=== PATIENT | female | born 1930 | race Caucasian/White ===

== ENCOUNTER 2017-08-05 10:45 | Outpatient (RCR) | payer MEDICARE ==
--- NOTE | 2017-07-29 17:45 | PT INITIAL EVALUATION ---
MEDICAL DIAGNOSIS: Edema, Hypoxia TREATMENT DIAGNOSIS: Cardiac edema, Venous Insufficiency, Phlebolymphedema DATE OF ONSET: 07/29/17 SUBJECTIVE: Maggie is a 87 year-old female presenting to physical therapy following a recent increase in B LE edema. Pt's son is present throughout evaluation as pt has dementia and is currently residing in [facility]. Pt and son report that edema started a while ago and that previously she was receiving treatment for it in [place], [place]. Since moving her the edema has recently increased because pt is non-compliant with use of compression garments secondary to cognitive difficulties. Swelling occurred initially secondary to cardiac edema. Pt is currently taking diuretics regularly to manage. Pt reports that currently swelling is so bad she can't even wear normal shoes and can barely fit on slippers. Pt denies any pain. REHAB PROBLEM LIST: Decreased ROM Decreased Function Decreased ADL's Decreased Mobility Decreased Gait PREVIOUS MEDICAL HISTORY: See EMR OCCUPATION: Retired OBJECTIVE: Pt presents with redness along gaiter distribution B with peau d' orange texture across the mann B. ROM: Ankle mobility with mild restrictions secondary to stiffness, but without pain. Palpation: Stemmer's sign (+) on R 1st digit, and L 1st and 2nd digits. (-) B on dorsum. 2+ pitting is present on calf B, with 3+ pitting on dorsum of foot. Special Tests: Circumferential measures (L, R) in cm: 1st digit: 8.2, 8.4, 2nd digit: 5.7, 5.5, dorsum: 24.2, 24, figure 8: 52, 51.5, above malleoli: 23.5, 23 , mid calf: 38, 37.7, below knee: 38.8, 38.5, above knee: 41.5, 40. Other Objective Findings: Pt is on 5 L of Oxygen. O2 saturation: 85%, HR 72bpm, BP: 104/58 pt's son reports that low BP is common for pt and being managed. ASSESSMENT: Pt shows signs and symptoms consistent with cardiac edema with secondary venous insufficiency and phlebolymphedema. Lymphatic therapy is indicated for this pt for decreasing circumferential volume of the limb addressing the above listed impairments to return pt to prior level of function. Precautions to treatment include dementia resulting in low compliance with compression garments as well as gradual progression of treatment secondary to CHF condition. Short Term Goals In 3 weeks pt will be able to wear normal shoes with ADL's secondary to decreased edema in B feet. In 6 weeks pt will have a negative Stemmer's sign on B digits and dorsum of foot indicating decreased protein content and improved tissue mobility. In 6 weeks pt will be compliant with compression garments and exercise program to maintain circumferential reductions. Patient's Goals Decrease edema so that she can wear normal shoes. PLAN: Patient to be seen for Manual Therapy/STM/MET Range of Motion Stretching Neuromuscular Re-ed Closed Chain Program Gait Trg/Balance Trg Home Exercise Program [facility]./Manual Traction Therapeutic Activities 5x/Week for 6 Weeks If you have any questions, comments, or concerns about this report or plan, please contact me at . Thank you, Jaimie Sims, PT, DPT, CLT MTDD
[2017-08-05] MEDS ORDERED: ACET-1966 PO (16:12)
[2017-08-05] MEDS ORDERED: FERR-53 PO (16:20)
[2017-08-05] MEDS ORDERED: IPRA4AER IH (16:20)
[2017-08-05] MEDS ORDERED: MAG-65 PO (16:20)
[2017-08-05] MEDS ORDERED: MOM PO (16:20)
[2017-08-05] MEDS ORDERED: FURO20TA19 PO (16:20)
[2017-08-05] MEDS ORDERED: LOPE2CAP15 PO (16:20)
[2017-08-05] MEDS ORDERED: APIX2.5T PO (16:20)
[2017-08-05] MEDS ORDERED: DIGO125T73 PO (16:20)
[2017-08-05] MEDS ORDERED: METO-233 PO (16:20)
[2017-08-05] MEDS ORDERED: FAMO1TAB59 PO (16:20)
[2017-08-05] MEDS ORDERED: CEPH500T7 PO (17:52)
== END 2017-08-05 18:00 | disposition home or self-care (01) ==
LOC: PT 10:45
PROVIDERS: ATTEND Family Medicine
DX: R09.02 Hypoxemia (principal); I89.0 Lymphedema, not elsewhere classified; I87.2 Venous insufficiency (chronic) (peripheral); Z99.81 Dependence on supplemental oxygen; F03.90 Unspecified dementia, unspecified severity, without behavioral disturbance, psychotic disturbance, mood disturbance, and anxiety
CPT/HCPCS: 97162

== ENCOUNTER 2017-08-05 15:37 | Emergency (ER) | payer MEDICARE ==
--- NOTE | 2017-08-05 15:45 | ER Report ---
History and Physical Time Seen By MD: 15:36 HPI/ROS CHIEF COMPLAINT: Fall with unequal pupils HISTORY OF PRESENT ILLNESS: 87-year-old female patient presents to emergency room with complaint of a fall. Patient is a resident of [facility]. Patient has no recollection of fall, she denies having any neck pain. She denies having any head pain. She states that she is here at the hospital, she is unsure of recent. She states that she took a medicine for exercise which had too much exercise in it. Patient denies having any nausea, vomiting. Patient does have a history of dementia. Patient unable to state if she is taken any medications. She does take a look was and has been having recent nosebleeds. REVIEW OF SYSTEMS: Respiratory: No cough, no dyspnea. Cardiovascular: No chest pain, no palpitations. Gastrointestinal: No vomiting, no abdominal pain. Musculoskeletal: No back pain. Allergies: Coded Allergies: No Known Drug Allergies (Unverified , 08/05/17) Home Meds Active Scripts Cephalexin 500 Mg Tab (KEFLEX 500 MG TAB) 500 Mg Tablet, 500 MG PO Q6H, #26 TAB Prov:JEY ANGEL OFFICE CLIN ASST 08/05/17 Reported Medications Metoprolol Succinate (TOPROL XL) 50 Mg Tab.er.24h, 1 TAB PO QDAY, TAB 08/05/17 Mag Hydrox/Aluminum Hyd/Simeth (Maalox Advanced Suspension) 200 Mg-200 Mg-20 Mg/ 5 Ml Oral.susp, 15 08/05/17 Magnesium Hydroxide (MILK OF MAGNESIA) 400 Mg/5 Ml Oral.susp, 400 MG PO, BOTTLE 08/05/17 Furosemide (LASIX) 20 Mg Tablet, 2 TAB PO DAILY, TAB 08/05/17 Loperamide HCl (Imodium A-D) 2 Mg Capsule 08/05/17 Ferrous Sulfate (FERROUS SULFATE) 325 Mg Tablet, 325 MG PO BID 08/05/17 Apixaban (ELIQUIS) 2.5 Mg Tablet, 2.5 MG PO BID 08/05/17 Digoxin (DIGOXIN) 125 Mcg Tablet, 125 MCG PO QDAY 08/05/17 Ipratropium/Albuterol Sulfate (COMBIVENT RESPIMAT INHAL SPRAY) 4 Gm Aer.w.adap, 1 EACH IH QID 08/05/17 Famotidine/Ca Carb/Mag Hydrox (TUMS DUAL ACTION TABLET CHEW) 1 Each Tab.chew, 1 EACH PO, TAB.CHEW 08/05/17 Acetaminophen (TYLENOL) 325 Mg Tablet, 325 MG PO q4h prn, TAB 08/05/17 Past Medical/Surgical History Patient has a past medical history of dementia, CHF, oxygen, cataracts. Patient has surgical history of cataract surgery. Reviewed Nurses Notes: Yes Constitutional Vital Sign - Last 24 Hours 08/05/17 08/05/17 08/05/17 08/05/17 15:41 15:44 15:45 16:06 Temp 97.9 Pulse 81 Resp 18 B/P (MAP) 124/58 124/58 (80) 122/67 (85) Pulse Ox 89 O2 Delivery Nasal Cannula O2 Flow Rate 5.0 08/05/17 08/05/17 08/05/17 08/05/17 16:07 16:30 16:35 17:05 Pulse 80 ? B/P (MAP) 114/52 (72) Pulse Ox 91 08/05/17 08/05/17 08/05/17 17:24 17:30 17:35 Pulse 74 B/P (MAP) 112/82 (92) 114/92 (99) Pulse Ox 83 Physical Exam General Appearance: The patient is alert, has no immediate need for airway protection and no current signs of toxicity. Eyes: Pupils unequal with the left pupil being more constricted than the right and round no injection. Respiratory: Chest is non tender, lungs are clear to auscultation. Cardiac: regular rate and rhythm Gastrointestinal: Abdomen is soft and non tender, no masses, bowel sounds normal. Musculoskeletal: Neck: Neck is supple and non tender. Extremities have full range of motion and are non tender. Skin: No rashes or lesions. DIFFERENTIAL DIAGNOSIS: After history and physical exam differential diagnosis was considered for head injury including but not limited to concussion, skull fracture, intraparenchymal contusion, subarachnoid, subdural and epidural hematoma. Medical Decision Making Data Points Result Diagram: 08/05/17 1550 08/05/17 1550 Laboratory Hematology Test 08/05/17 15:50 08/05/17 16:05 Red Blood Count 3.60 M/uL (4.17-5.56) Mean Corpuscular Volume 107.7 fL (80.0-96.0) Mean Corpuscular Hemoglobin 35.4 pg (26.0-33.0) Mean Corpuscular Hemoglobin Concent 32.9 g/dL (32.0-36.0) Red Cell Distribution Width 17.3 % (11.5-14.5) Mean Platelet Volume 7.5 fL (7.2-11.1) Neutrophils (%) (Auto) 77.6 % (39.4-72.5) Lymphocytes (%) (Auto) 11.9 % (17.6-49.6) Monocytes (%) (Auto) 9.2 % (4.1-12.4) Eosinophils (%) (Auto) 0.7 % (0.4-6.7) Basophils (%) (Auto) 0.6 % (0.3-1.4) Nucleated RBC Relative Count (auto) 0.4 /100WBC Neutrophils # (Auto) 5.0 K/uL (2.0-7.4) Lymphocytes # (Auto) 0.8 K/uL (1.3-3.6) Monocytes # (Auto) 0.6 K/uL (0.3-1.0) Eosinophils # (Auto) 0.0 K/uL (0.0-0.5) Basophils # (Auto) 0.0 K/uL (0.0-0.1) Nucleated RBC Absolute Count (auto) 0.03 K/uL Prothrombin Time 15.0 seconds (12.0-14.4) Prothromb Time International Ratio 1.17 Activated Partial Thromboplast Time 31 seconds (23-35) Sodium Level 146 mmol/L (137-145) Potassium Level 3.8 mmol/L (3.5-5.0) Chloride Level 103 mmol/L (98-107) Carbon Dioxide Level 33 mmol/L (22-31) Blood Urea Nitrogen 20 mg/dl (7-18) Creatinine 0.90 mg/dl (0.52-1.04) Glomerular Filtration Rate Calc 59.1 Random Glucose 101 mg/dl (75-110) Calcium Level 8.8 mg/dl (8.4-10.2) Total Bilirubin 0.7 mg/dl (0.2-1.3) Aspartate Amino Transf (AST/SGOT) 34 U/L (0-35) Alanine Aminotransferase (ALT/SGPT) 25 U/L (0-56) Alkaline Phosphatase 88 U/L (0-126) Troponin I < 0.012 ng/ml Total Protein 6.7 gm/dl (6.3-8.2) Albumin 3.3 g/dl (3.5-5.0) Urine Color Yellow Urine Clarity Clear Urine pH 5.0 pH (4.8-9.5) Urine Specific [place] 1.015 Urine Protein Negative mg/dL (NEGATIVE) Urine Glucose (UA) Negative mg/dL (NEGATIVE) Urine Ketones Negative mg/dL (NEGATIVE) Urine Blood Negative (NEGATIVE) Urine Nitrite Positive (NEGATIVE) Urine Bilirubin Negative (NEGATIVE) Urine Urobilinogen 2.0 mg/dL (0.2-1.9) Urine Leukocyte Esterase Negative (NEGATIVE) Urine RBC 2 /HPF (0-2/HPF) Urine WBC 2 /HPF (0-5/HPF) Urine Squamous Epithelial Cells Few /LPF (NONE-FEW) Urine Bacteria Few /HPF (NONE-FEW) Urine Mucus None /HPF (NONE-FEW) Chemistry Test 08/05/17 15:50 08/05/17 16:05 White Blood Count 6.4 k/uL (4.5-11.0) Red Blood Count 3.60 M/uL (4.17-5.56) Hemoglobin 12.8 g/dL (12.0-16.0) Hematocrit 38.8 % (34.0-47.0) Mean Corpuscular Volume 107.7 fL (80.0-96.0) Mean Corpuscular Hemoglobin 35.4 pg (26.0-33.0) Mean Corpuscular Hemoglobin Concent 32.9 g/dL (32.0-36.0) Red Cell Distribution Width 17.3 % (11.5-14.5) Platelet Count 164 K/uL (150-450) Mean Platelet Volume 7.5 fL (7.2-11.1) Neutrophils (%) (Auto) 77.6 % (39.4-72.5) Lymphocytes (%) (Auto) 11.9 % (17.6-49.6) Monocytes (%) (Auto) 9.2 % (4.1-12.4) Eosinophils (%) (Auto) 0.7 % (0.4-6.7) Basophils (%) (Auto) 0.6 % (0.3-1.4) Nucleated RBC Relative Count (auto) 0.4 /100WBC Neutrophils # (Auto) 5.0 K/uL (2.0-7.4) Lymphocytes # (Auto) 0.8 K/uL (1.3-3.6) Monocytes # (Auto) 0.6 K/uL (0.3-1.0) Eosinophils # (Auto) 0.0 K/uL (0.0-0.5) Basophils # (Auto) 0.0 K/uL (0.0-0.1) Nucleated RBC Absolute Count (auto) 0.03 K/uL Prothrombin Time 15.0 seconds (12.0-14.4) Prothromb Time International Ratio 1.17 Activated Partial Thromboplast Time 31 seconds (23-35) Glomerular Filtration Rate Calc 59.1 Calcium Level 8.8 mg/dl (8.4-10.2) Total Bilirubin 0.7 mg/dl (0.2-1.3) Aspartate Amino Transf (AST/SGOT) 34 U/L (0-35) Alanine Aminotransferase (ALT/SGPT) 25 U/L (0-56) Alkaline Phosphatase 88 U/L (0-126) Troponin I < 0.012 ng/ml Total Protein 6.7 gm/dl (6.3-8.2) Albumin 3.3 g/dl (3.5-5.0) Urine Color Yellow Urine Clarity Clear Urine pH 5.0 pH (4.8-9.5) Urine Specific [place] 1.015 Urine Protein Negative mg/dL (NEGATIVE) Urine Glucose (UA) Negative mg/dL (NEGATIVE) Urine Ketones Negative mg/dL (NEGATIVE) Urine Blood Negative (NEGATIVE) Urine Nitrite Positive (NEGATIVE) Urine Bilirubin Negative (NEGATIVE) Urine Urobilinogen 2.0 mg/dL (0.2-1.9) Urine Leukocyte Esterase Negative (NEGATIVE) Urine RBC 2 /HPF (0-2/HPF) Urine WBC 2 /HPF (0-5/HPF) Urine Squamous Epithelial Cells Few /LPF (NONE-FEW) Urine Bacteria Few /HPF (NONE-FEW) Urine Mucus None /HPF (NONE-FEW) Coagulation Test 08/05/17 15:50 Prothrombin Time 15.0 seconds Prothromb Time International Ratio 1.17 Activated Partial Thromboplast Time 31 seconds Urinalysis Test 08/05/17 16:05 Urine Color Yellow Urine Clarity Clear Urine pH 5.0 pH (4.8-9.5) Urine Specific [place] 1.015 Urine Protein Negative mg/dL (NEGATIVE) Urine Glucose (UA) Negative mg/dL (NEGATIVE) Urine Ketones Negative mg/dL (NEGATIVE) Urine Blood Negative (NEGATIVE) Urine Nitrite Positive (NEGATIVE) Urine Bilirubin Negative (NEGATIVE) Urine Urobilinogen 2.0 mg/dL (0.2-1.9) Urine Leukocyte Esterase Negative (NEGATIVE) Urine RBC 2 /HPF (0-2/HPF) Urine WBC 2 /HPF (0-5/HPF) Urine Squamous Epithelial Cells Few /LPF (NONE-FEW) Urine Bacteria Few /HPF (NONE-FEW) Urine Mucus None /HPF (NONE-FEW) EKG/Imaging EKG Interpretation 12 lead EKG: Rhythm: Atrial fibrillation with a ventricular rate of 77 bpm [place]: normal QRS: Low voltage to QRS ST segments: normal Imaging EXAMINATION: Portable chest radiograph single view at 1558 hours HISTORY: Fall. COMPARISON: None. FINDINGS: A single portable AP view of the chest is obtained. Lines/tubes: None. Lungs/pleura: There are moderate bilateral pleural effusions with bibasilar consolidation. Heart: Cardiac silhouette is partly obscured by the consolidation and effusions. Mediastinum: Atherosclerotic calcifications of the aorta. Bony structures/body wall: Negative. IMPRESSION: Moderate bilateral pleural effusions with bibasilar consolidation. The consolidation could be due to bibasilar pneumonia or compressive atelectasis. Report Dictated By: Jane Genao MD at 08/05/2017 4:07 PM Report E-Signed By: Jane Genao MD at 08/05/2017 4:10 PM ED Course/Re-evaluation ED Course Patient is admitted and examined, history and physical were obtained. Differential diagnosis was considered. On exam patient does have skin tear to the right hand, no tenderness to the head or neck. A CBC, CMP, PT, PTT, chest x- ray, urinalysis, CT scan of the head were done. The lab results were unremarkable, patient did not have an elevated white count, PTT was slightly elevated at 15, urinalysis did show negative leukocyte esterase, however does show positive nitrites. I do have concerns that she may be in the early stages of a urinary tract infection which also led to the fall. The chest x-ray showed continued pleural effusion, with atelectasis. CT scan of the head showed no acute hemorrhage, stroke. I discussed the findings with the patient and her son. I did clean up the skin tear on the right hand, covered it with bacitracin and a Tegaderm. Patient tolerated procedure well. We will go ahead and discharge patient home at this time. We will start her on Keflex. A urine culture was ordered. They're to return to the emergency room with any worsening of condition. I discussed this with the patient who verbalized understanding and agreement with plan. Decision to Disposition Date: Aug 05, 2017 Decision to Disposition Time: 17:49 Depart Departure Latest Vital Signs Vital Signs Date Time Temp Pulse Resp B/P (MAP) Pulse Ox O2 Delivery O2 Flow Rate FiO2 08/05/17 17:35 74 83 08/05/17 17:30 114/92 (99) 08/05/17 15:45 5.0 08/05/17 15:41 97.9 18 Nasal Cannula Impression: Primary Impression: UTI (urinary tract infection) Additional Impression: Dementia Condition: Improved Disposition: HOME OR SELF-CARE Referrals: MAGGY DIEZ MD (PCP) New Scripts Cephalexin 500 Mg Tab (KEFLEX 500 MG TAB) 500 Mg Tablet 500 MG PO Q6H, #26 TAB Prov: JEY ANGEL 08/05/17 Patient Instructions: Urinary Tract Infection in Women (ED) Additional Instructions: Increase fluid intake. Get plenty of rest. Follow up with your primary care provider in the next week. Continue with current medications. Return to the ER if condition worsens. Problem Qualifiers Primary Impression: UTI (urinary tract infection) Urinary tract infection type: acute cystitis Hematuria presence: without hematuria Qualified Codes: N30.00 - Acute cystitis without hematuria Additional Impression: Dementia Dementia type: Alzheimer's disease Alzheimer's disease onset: unspecified onset Dementia behavioral disturbance: without behavioral disturbance Qualified Codes: G30.9 - Alzheimer's disease, unspecified; F02.80 - Dementia in other diseases classified elsewhere without behavioral disturbance JEY ANGEL Aug 05, 2017 15:45
--- NOTE | 2017-08-05 16:01 | EKG ---
FACILITY: [facility] [place] PATIENT NAME: BEKAH HERRING : [id number] MR: [id number] V: [id number] EXAM DATE: ORDERING PHYSICIAN: JEY ANGEL TECHNOLOGIST: ROBERT Test Reason : FELL Blood Pressure : / mmHG Vent. Rate : 077 BPM Atrial Rate : 375 BPM P-R Int : 000 ms QRS Dur : 076 ms QT Int : 346 ms P-R-T Axes : 000 026 082 degrees QTc Int : 391 ms Atrial fibrillation Poor R wave progression anterior leads Abnormal ECG No previous ECGs available Confirmed by EFE MADDOX ([id number]) on 08/06/2017 5:43:40 AM Referred By: HUONG Confirmed By:EFE MADDOX
[2017-08-05] MEDS ORDERED: ACET-1966 PO (16:12)
--- NOTE | 2017-08-05 16:14 | RADIOLOGY IMAGING REPORT ---
FACILITY: [facility] PATIENT NAME: Maggie Dennis : 1930 MR: [id number] V: [id number] EXAM DATE: ORDERING PHYSICIAN: JEY ANGEL TECHNOLOGIST: Location: [facility] - [place], [place] Patient: Maggie Dennis : 1930 Visit/Account:[id number] Date of Sevice: 08/05/2017 EXAMINATION: Portable chest radiograph single view at 1558 hours HISTORY: Fall. COMPARISON: None. FINDINGS: A single portable AP view of the chest is obtained. Lines/tubes: None. Lungs/pleura: There are moderate bilateral pleural effusions with bibasilar consolidation. Heart: Cardiac silhouette is partly obscured by the consolidation and effusions. Mediastinum: Atherosclerotic calcifications of the aorta. Bony structures/body wall: Negative. IMPRESSION: Moderate bilateral pleural effusions with bibasilar consolidation. The consolidation could be due to bibasilar pneumonia or compressive atelectasis. Report Dictated By: Jane Genao MD at 08/05/2017 4:07 PM Report E-Signed By: Jane Genao MD at 08/05/2017 4:10 PM [id number]
[2017-08-05] MEDS ORDERED: FURO20TA19 PO (16:20)
[2017-08-05] MEDS ORDERED: APIX2.5T PO (16:20)
[2017-08-05] MEDS ORDERED: MOM PO (16:20)
[2017-08-05] MEDS ORDERED: FERR-53 PO (16:20)
[2017-08-05] MEDS ORDERED: MAG-65 PO (16:20)
[2017-08-05] MEDS ORDERED: FAMO1TAB59 PO (16:20)
[2017-08-05] MEDS ORDERED: DIGO125T73 PO (16:20)
[2017-08-05] MEDS ORDERED: IPRA4AER IH (16:20)
[2017-08-05] MEDS ORDERED: METO-233 PO (16:20)
[2017-08-05] MEDS ORDERED: LOPE2CAP15 PO (16:20)
[2017-08-05 16:24] LABS: PLATELET COUNT, AUTOMATED 164 K/uL (150-450)
[2017-08-05 16:38] LABS: INR 1.17
[2017-08-05 17:30] VITALS: BP 114/92
--- NOTE | 2017-08-05 17:43 | RADIOLOGY IMAGING REPORT ---
FACILITY: [facility] PATIENT NAME: Maggie Dennis : 1930 MR: [id number] V: [id number] EXAM DATE: ORDERING PHYSICIAN: JEY ANGEL TECHNOLOGIST: Location: [facility] [place] Patient: Maggie Dennis : 1930 Visit/Account:[id number] Date of Sevice: 08/05/2017 EXAMINATION: CT head without IV contrast HISTORY: Fall, unequal pupils. COMPARISON: None. TECHNIQUE: Contiguous axial images were obtained from the skull base to the vertex without intraven ous contrast. Sagittal and coronal reformatted images are also submitted. One of the following dose optimization techniques was utilized in the performance of this exam: Autom ated exposure control; adjustment of the mA and/or kV according to the patient's size; or use of an i terative reconstruction technique. Specific details can be referenced in the facility's radiology C T exam operational policy. FINDINGS: Brain volume: Mild generalized atrophy with associated concordant prominence of the ventricular syst em. Ventricles: Normal. Acute ischemic changes: None. Hemorrhage: No acute intracranial hemorrhage. Masses/edema: None. Serna-white: Negative. White matter: Patchy and confluent hypodensities in the deep white matter bilaterally. Vessels: Calcified plaque of both carotid siphons. Extra-axial: Negative. Calvarium/scalp: No acute fracture. Skull base/visualized face: Negative. Visualized sinuses/orbits: Previous right lens surgery and bilateral scleral banding. IMPRESSION: 1. No acute fracture, hemorrhage or intracranial mass lesion. No CT evidence of acute infarct. 2. Moderate to severe nonspecific white matter disease suspicious for chronic small vessel ischemia. Report Dictated By: Jane Genao MD at 08/05/2017 5:37 PM Report E-Signed By: Jane Genao MD at 08/05/2017 5:39 PM WSN:[id number]
[2017-08-05] MEDS ORDERED: CEPH500T7 PO (17:52)
[2017-08-05] MEDS ORDERED: CEPHALEXIN 500 MG CAP TH 2 CAP/BOTTLE PO ONE (17:55)
== END 2017-08-05 18:25 | disposition home or self-care (01) ==
LOC: ER 15:42
DX: N30.00 Acute cystitis without hematuria (principal); G30.9 Alzheimer's disease, unspecified; F02.80 Dementia in other diseases classified elsewhere, unspecified severity, without behavioral disturbance, psychotic disturbance, mood disturbance, and anxiety; W18.30XA Fall on same level, unspecified, initial encounter; J90 Pleural effusion, not elsewhere classified; I48.91 Unspecified atrial fibrillation; I50.9 Heart failure, unspecified
CPT/HCPCS: 36415; 70450; 71045; 81001; 84484; 85025; 85610; 85730; 87077; 87088; 87186; 93005; 99284; A4353; 82040; 82247; 82310; 82374; 82435; 82565; 82947; 84075; 84132; 84155; 84295; 84450; 84460; 84520

== ENCOUNTER → 2017-08-05 | Outpatient (CLI) | payer MEDICARE ==
[~2017-08-05] MED LIST: ACET-1966 PO; APIX2.5T PO; CEPH500T7 PO; DIGO125T73 PO; FAMO1TAB59 PO; FERR-53 PO; FURO20TA19 PO; IPRA4AER IH; LOPE2CAP15 PO; MAG-65 PO; METO-233 PO; MOM PO
[2017-08-09 17:27] VITALS: BMI 22.7
== END ==
LOC: AMB 15:16
PROVIDERS: ATTEND Nurse Practitioner
DX: S60.311A Abrasion of right thumb, initial encounter (principal); R09.02 Hypoxemia; W18.30XA Fall on same level, unspecified, initial encounter; Y92.129 Unspecified place in nursing home as the place of occurrence of the external cause
CPT/HCPCS: A0425; A0427

== ENCOUNTER 2017-08-07 08:30 | Inpatient (IN) | payer MEDICARE ==
[~2017-08-07] VITALS: Ht 160 cm; Wt 49.9 kg
[~2017-08-07 08:30] MED LIST changes: -FURO-47 PO; -LORA-1455 PO; -POTA-53 PO
--- NOTE | 2017-08-07 08:32 | ER Report ---
History and Physical Time Seen By MD: 08:31 HPI/ROS CHIEF COMPLAINT: Fall HISTORY OF PRESENT ILLNESS: Patient is an 87-year-old female who was sent from [facility] post a fall that was unwitnessed. Patient is unable to tell us why she fell. She was recently seen here on August 05 for a fall and was found to have a urinary tract infection and is currently on Keflex. Patient is awake and alert she is complaining of pain to the left hand wrist and elbow. Patient is anticoagulated with Eliquis for history of atrial fibrillation. Patient also takes digoxin. Patient also sustained nosebleed to the right naris which is currently packed with gauze no active bleeding is noted. REVIEW OF SYSTEMS: General: No fevers, no chills Eyes: No redness, no discharge Ears: No pain, no discharge Nares: Right sided epistaxis OP: No dysphagia, no erythema Neck: In cervical collar CV: No chest pain, no palpitations Pulm: No cough, no congestion, no wheezing Ab: No pain, no nausea, no vomiting, no diarrhea Ext: Left hand wrist and elbow pain Neuro: No headaches, no numbness or tingling, no focal neurological deficit Skin: Skin tear to left elbow Allergies: Coded Allergies: No Known Drug Allergies (Unverified , 08/07/17) Home Meds Active Scripts Cephalexin 500 Mg Tab (KEFLEX 500 MG TAB) 500 Mg Tablet, 500 MG PO Q6H, #26 TAB Prov:JEY ANGEL DEICER FINISHER 08/05/17 Reported Medications Metoprolol Succinate (TOPROL XL) 50 Mg Tab.er.24h, 1 TAB PO QDAY, TAB 08/05/17 Mag Hydrox/Aluminum Hyd/Simeth (Maalox Advanced Suspension) 200 Mg-200 Mg-20 Mg/ 5 Ml Oral.susp, 15 08/05/17 Magnesium Hydroxide (MILK OF MAGNESIA) 400 Mg/5 Ml Oral.susp, 400 MG PO, BOTTLE 08/05/17 Furosemide (LASIX) 20 Mg Tablet, 2 TAB PO DAILY, TAB 08/05/17 Loperamide HCl (Imodium A-D) 2 Mg Capsule 08/05/17 Ferrous Sulfate (FERROUS SULFATE) 325 Mg Tablet, 325 MG PO BID 08/05/17 Apixaban (ELIQUIS) 2.5 Mg Tablet, 2.5 MG PO BID 08/05/17 Digoxin (DIGOXIN) 125 Mcg Tablet, 125 MCG PO QDAY 08/05/17 Ipratropium/Albuterol Sulfate (COMBIVENT RESPIMAT INHAL SPRAY) 4 Gm Aer.w.adap, 1 EACH IH QID 08/05/17 Famotidine/Ca Carb/Mag Hydrox (TUMS DUAL ACTION TABLET CHEW) 1 Each Tab.chew, 1 EACH PO, TAB.CHEW 08/05/17 Acetaminophen (TYLENOL) 325 Mg Tablet, 325 MG PO q4h prn, TAB 08/05/17 Past Medical/Surgical History Patient has a past medical history of dementia, CHF, oxygen, cataracts. Patient has surgical history of cataract surgery. Hx Substance Use Disorder: No Hx Alcohol Use: No Constitutional Vital Sign - Last 24 Hours 08/07/17 08/07/17 08/07/17 08/07/17 08:34 08:38 09:00 09:03 Temp 98.6 Pulse 86 80 Resp 14 14 B/P (MAP) 143/119 (127) 143/119 131/87 (102) Pulse Ox 95 92 O2 Delivery Room Air O2 Flow Rate 10.0 08/07/17 08/07/17 08/07/17 08/07/17 09:05 09:43 10:00 10:05 Pulse 83 84 Resp 18 13 B/P (MAP) 134/95 (108) 130/79 (96) Pulse Ox 95 96 08/07/17 08/07/17 08/07/17 08/07/17 10:20 10:30 10:35 10:50 Pulse 86 78 82 Resp 17 11 11 B/P (MAP) 109/51 (70) Pulse Ox 91 93 Intake and Output 08/07/17 08/07/17 08/08/17 15:00 23:00 07:00 Output Total 10 ml Balance -10 ml Physical Exam General Appearance: The patient is alert, has no immediate need for airway protection and no signs of toxicity. Eyes: Pupils equal and round no pallor or injection. ENT, Mouth: Mucous membranes are moist. Right naris is currently packed with gauze. No active bleeding is noted. Patient is in cervical collar Respiratory: There are no retractions, lungs are clear to auscultation. Cardiovascular: Heart is irregularly irregular but rate controlled Gastrointestinal: Abdomen is soft and non tender, no masses, bowel sounds normal. Neurological: Patient is awake and alert Skin: Warm and dry, no rashes. Vision is skin tear to the left elbow. Musculoskeletal: Neck is supple non tender. Extremities are noted for tenderness to the left hand wrist and elbow. 3 cm v shaped laceration to the left forearm Medical Decision Making Data Points Result Diagram: 08/07/17 0846 08/07/17 0846 Laboratory Hematology Test 08/07/17 00:00 08/07/17 08:46 08/07/17 08:58 B-Type Natriuretic Peptide 410 pg/ml (0-100) Red Blood Count 3.68 M/uL (4.17-5.56) Mean Corpuscular Volume 106.0 fL (80.0-96.0) Mean Corpuscular Hemoglobin 35.4 pg (26.0-33.0) Mean Corpuscular Hemoglobin Concent 33.4 g/dL (32.0-36.0) Red Cell Distribution Width 17.2 % (11.5-14.5) Mean Platelet Volume 7.1 fL (7.2-11.1) Neutrophils (%) (Auto) 81.0 % (39.4-72.5) Lymphocytes (%) (Auto) 7.5 % (17.6-49.6) Monocytes (%) (Auto) 9.6 % (4.1-12.4) Eosinophils (%) (Auto) 0.8 % (0.4-6.7) Basophils (%) (Auto) 1.1 % (0.3-1.4) Nucleated RBC Relative Count (auto) 0.2 /100WBC Neutrophils # (Auto) 5.2 K/uL (2.0-7.4) Lymphocytes # (Auto) 0.5 K/uL (1.3-3.6) Monocytes # (Auto) 0.6 K/uL (0.3-1.0) Eosinophils # (Auto) 0.1 K/uL (0.0-0.5) Basophils # (Auto) 0.1 K/uL (0.0-0.1) Nucleated RBC Absolute Count (auto) 0.01 K/uL Prothrombin Time 14.8 seconds (12.0-14.4) Prothromb Time International Ratio 1.15 Activated Partial Thromboplast Time 31 seconds (23-35) Sodium Level 144 mmol/L (137-145) Potassium Level 4.0 mmol/L (3.5-5.0) Chloride Level 104 mmol/L (98-107) Carbon Dioxide Level 31 mmol/L (22-31) Blood Urea Nitrogen 18 mg/dl (7-18) Creatinine 0.80 mg/dl (0.52-1.04) Glomerular Filtration Rate Calc > 60.0 Random Glucose 105 mg/dl (75-110) Calcium Level 8.8 mg/dl (8.4-10.2) Total Bilirubin 1.0 mg/dl (0.2-1.3) Aspartate Amino Transf (AST/SGOT) 32 U/L (0-35) Alanine Aminotransferase (ALT/SGPT) 28 U/L (0-56) Alkaline Phosphatase 95 U/L (0-126) Total Protein 6.7 gm/dl (6.3-8.2) Albumin 3.2 g/dl (3.5-5.0) Digoxin Level 1.0 ng/ml Digoxin Last Dose Date unk Digoxin Last Dose Time unk Urine Color Yellow Urine Clarity Slightly-cloudy Urine pH 5.0 pH (4.8-9.5) Urine Specific [place] 1.023 Urine Protein Negative mg/dL (NEGATIVE) Urine Glucose (UA) Negative mg/dL (NEGATIVE) Urine Ketones Trace mg/dL (NEGATIVE) Urine Blood Negative (NEGATIVE) Urine Nitrite Negative (NEGATIVE) Urine Bilirubin Negative (NEGATIVE) Urine Urobilinogen 4.0 mg/dL (0.2-1.9) Urine Leukocyte Esterase Negative (NEGATIVE) Urine RBC <1 /HPF (0-2/HPF) Urine WBC 5 /HPF (0-5/HPF) Urine Squamous Epithelial Cells Many /LPF (NONE-FEW) Urine Bacteria Few /HPF (NONE-FEW) Urine Mucus Few /HPF (NONE-FEW) Chemistry Test 08/07/17 00:00 08/07/17 08:46 08/07/17 08:58 B-Type Natriuretic Peptide 410 pg/ml (0-100) White Blood Count 6.4 k/uL (4.5-11.0) Red Blood Count 3.68 M/uL (4.17-5.56) Hemoglobin 13.0 g/dL (12.0-16.0) Hematocrit 39.0 % (34.0-47.0) Mean Corpuscular Volume 106.0 fL (80.0-96.0) Mean Corpuscular Hemoglobin 35.4 pg (26.0-33.0) Mean Corpuscular Hemoglobin Concent 33.4 g/dL (32.0-36.0) Red Cell Distribution Width 17.2 % (11.5-14.5) Platelet Count 158 K/uL (150-450) Mean Platelet Volume 7.1 fL (7.2-11.1) Neutrophils (%) (Auto) 81.0 % (39.4-72.5) Lymphocytes (%) (Auto) 7.5 % (17.6-49.6) Monocytes (%) (Auto) 9.6 % (4.1-12.4) Eosinophils (%) (Auto) 0.8 % (0.4-6.7) Basophils (%) (Auto) 1.1 % (0.3-1.4) Nucleated RBC Relative Count (auto) 0.2 /100WBC Neutrophils # (Auto) 5.2 K/uL (2.0-7.4) Lymphocytes # (Auto) 0.5 K/uL (1.3-3.6) Monocytes # (Auto) 0.6 K/uL (0.3-1.0) Eosinophils # (Auto) 0.1 K/uL (0.0-0.5) Basophils # (Auto) 0.1 K/uL (0.0-0.1) Nucleated RBC Absolute Count (auto) 0.01 K/uL Prothrombin Time 14.8 seconds (12.0-14.4) Prothromb Time International Ratio 1.15 Activated Partial Thromboplast Time 31 seconds (23-35) Glomerular Filtration Rate Calc > 60.0 Calcium Level 8.8 mg/dl (8.4-10.2) Total Bilirubin 1.0 mg/dl (0.2-1.3) Aspartate Amino Transf (AST/SGOT) 32 U/L (0-35) Alanine Aminotransferase (ALT/SGPT) 28 U/L (0-56) Alkaline Phosphatase 95 U/L (0-126) Total Protein 6.7 gm/dl (6.3-8.2) Albumin 3.2 g/dl (3.5-5.0) Digoxin Level 1.0 ng/ml Digoxin Last Dose Date unk Digoxin Last Dose Time unk Urine Color Yellow Urine Clarity Slightly-cloudy Urine pH 5.0 pH (4.8-9.5) Urine Specific [place] 1.023 Urine Protein Negative mg/dL (NEGATIVE) Urine Glucose (UA) Negative mg/dL (NEGATIVE) Urine Ketones Trace mg/dL (NEGATIVE) Urine Blood Negative (NEGATIVE) Urine Nitrite Negative (NEGATIVE) Urine Bilirubin Negative (NEGATIVE) Urine Urobilinogen 4.0 mg/dL (0.2-1.9) Urine Leukocyte Esterase Negative (NEGATIVE) Urine RBC <1 /HPF (0-2/HPF) Urine WBC 5 /HPF (0-5/HPF) Urine Squamous Epithelial Cells Many /LPF (NONE-FEW) Urine Bacteria Few /HPF (NONE-FEW) Urine Mucus Few /HPF (NONE-FEW) Coagulation Test 08/07/17 08:46 Prothrombin Time 14.8 seconds Prothromb Time International Ratio 1.15 Activated Partial Thromboplast Time 31 seconds Toxicology Test 08/07/17 08:46 Digoxin Level 1.0 ng/ml Digoxin Last Dose Date unk Digoxin Last Dose Time unk Urinalysis Test 08/07/17 08:58 Urine Color Yellow Urine Clarity Slightly-cloudy Urine pH 5.0 pH (4.8-9.5) Urine Specific [place] 1.023 Urine Protein Negative mg/dL (NEGATIVE) Urine Glucose (UA) Negative mg/dL (NEGATIVE) Urine Ketones Trace mg/dL (NEGATIVE) Urine Blood Negative (NEGATIVE) Urine Nitrite Negative (NEGATIVE) Urine Bilirubin Negative (NEGATIVE) Urine Urobilinogen 4.0 mg/dL (0.2-1.9) Urine Leukocyte Esterase Negative (NEGATIVE) Urine RBC <1 /HPF (0-2/HPF) Urine WBC 5 /HPF (0-5/HPF) Urine Squamous Epithelial Cells Many /LPF (NONE-FEW) Urine Bacteria Few /HPF (NONE-FEW) Urine Mucus Few /HPF (NONE-FEW) EKG/Imaging EKG Interpretation EKG shows atrial fibrillation that is rate controlled with 80 bpm. There is some nonspecific ST and T-wave abnormalities. Imaging [place] [facility] [place]IENT NAME: Maggie Dennis : 1930 MR: [id number] V: [id number] EXAM DATE: ORDERING PHYSICIAN: JONES PEREZ TECHNOLOGIST: Location: [facility] [place] Patient: Maggie Dennis : 1930 Visit/Account:[id number] Date of Sevice: 08/07/2017 EXAMINATION: CT head without IV contrast HISTORY: Trauma. COMPARISON: CT head from 08/05/2017. TECHNIQUE: Contiguous axial images were obtained from the skull base to the vertex without intravenous contrast. Sagittal and coronal reformatted images are also submitted. One of the following dose optimization techniques was utilized in the performance of this exam: Automated exposure control; adjustment of the mA and/ or kV according to the patient's size; or use of an iterative reconstruction technique. Specific details can be referenced in the facility's radiology CT exam operational policy. FINDINGS: The exam is mildly limited by patient motion artifact. Brain volume: Mild generalized atrophy with associated concordant prominence of the ventricular system. Ventricles: Normal. Acute ischemic changes: None. Hemorrhage: No acute intracranial hemorrhage. Masses/edema: None. Serna-white: Negative. White matter: Patchy and confluent hypodensities in the deep white matter bilaterally. Vessels: Calcified plaque of both carotid siphons. Extra-axial: Negative. Calvarium/scalp: No acute fracture. Skull base/visualized face: Negative. Visualized sinuses/orbits: Previous right lens surgery and bilateral scleral banding. IMPRESSION: 1. No acute fracture, hemorrhage or intracranial mass lesion. No CT evidence of acute infarct. 2. Moderate to severe nonspecific white matter disease suspicious for chronic small vessel ischemia. Report Dictated By: Jane Genao MD at 08/07/2017 10:16 AM Report E-Signed By: Jane Genao MD at 08/07/2017 10:19 AM WSN:[id number] FACILITY: [facility] [place] PATIENT NAME: Maggie Dennis : 1930 MR: [id number] V: [id number] EXAM DATE: ORDERING PHYSICIAN: JONES PEREZ TECHNOLOGIST: Location: [facility] [place] Patient: Maggie Dennis : 1930 Visit/Account:[id number] Date of Sevice: 08/07/2017 EXAMINATION: CT cervical spine without IV contrast HISTORY: Trauma. COMPARISON: None. TECHNIQUE: Axial images were obtained from the skull base through the upper thoracic spine without IV contrast administration. Coronal and sagittal reformatted images were obtained from the axial source data. One of the following dose optimization techniques was utilized in the performance of this exam: Automated exposure control; adjustment of the mA and/ or kV according to the patient's size; or use of an iterative reconstruction technique. Specific details can be referenced in the facility's radiology CT exam operational policy. FINDINGS: The exam is mildly limited by patient motion artifact. Alignment: Grade 1 anterolisthesis at C4-5 measuring less than 2 mm. Cranio-cervical junction: Negative. Vertebral bodies: Negative. Posterior elements: Multilevel facet and uncovertebral hypertrophy, left greater than right. Hardware: None. Disc spaces: Moderate disc space narrowing and endplate sclerosis at C5-6 and C6 -7. Soft tissues: Atherosclerotic calcifications of the aortic arch and carotid bulbs. Visualized upper chest: Moderate to large bilateral pleural effusions layering posteriorly. IMPRESSION: 1. No acute fracture of the cervical spine. 2. Moderate degenerative disc disease at C5-6 and C6-7, and multilevel facet and uncovertebral arthropathy. 3. Grade 1 degenerative anterolisthesis at C4-5. 4. Moderate to large bilateral pleural effusions partly visualized. Report Dictated By: Jane Genao MD at 08/07/2017 10:09 AM Report E-Signed By: Jane Genao MD at 08/07/2017 10:14 AM WSN:[id number] FACILITY: [facility] [place] PATIENT NAME: Maggie Dennis : 1930 MR: [id number] V: [id number] EXAM DATE: ORDERING PHYSICIAN: JONES PEREZ TECHNOLOGIST: Location: [facility] [place] Patient: Maggie Dennis : 1930 Visit/Account:[id number] Date of Sevice: 08/07/2017 CHEST W/O CONTRAST History: fall TECHNIQUE: Contiguous axial images were performed through the chest to the level of the adrenal glands. No IV contrast was administered. Coronal and sagittal reformatting was also performed. One of the following dose optimization techniques was utilized in the performance of this exam: Automated exposure control; adjustment of the mA and/or kV according to the patient's size ; or use of an iterative reconstruction technique. Specific details can be referenced in the facility's radiology CT exam operational policy. COMPARISON STUDIES: none. Lungs / Pleura: There are large bilateral pleural effusions with associated bibasilar compressive atelectasis. Upper lung zones are aerated. Mediastinum/nodes: There are multiple small mediastinal lymph nodes measuring approximately 1 cm in diameter which is still within normal limits. Heart and vessels: Heart is globally enlarged. Musculoskeletal / Body wall: Osseous structures intact without evidence of fractures. Upper abdomen: Beyond the [id number]. IMPRESSION: Large bilateral pleural effusions with bilateral compressive atelectasis. This is probably related to congestive heart failure as there is global cardiomegaly. No evidence of acute trauma. Results were called to JONES PEREZ at 08/07/2017 10:13 AM. Report Dictated By: Anuel Murrell MD at 08/07/2017 10:13 AM Report E-Signed By: Anuel Murrell MD at 08/07/2017 10:18 AM WSN:[id number] [place]ACILITY: [facility] [place] PATIENT NAME: Maggie Dennis : 1930 MR: [id number] V: [id number] EXAM DATE: [id number] ORDERING PHYSICIAN: JONES PEREZ TECHNOLOGIST: Location: [facility] [place] Patient: Maggie Dennis : 1930 Visit/Account:[id number] Date of Sevice: 08/07/2017 3 views left elbow Indication: Trauma Comparison: None Available Findings: There is overlying soft tissue swelling. Somewhat difficult to tell on the lateral view if there is an effusion due to the adjacent soft tissue injury. Osseous alignment appears anatomic. There is mild degenerative change. Subtle spurring is seen at the tip of the coronoid process. No fracture. No definite effusion. IMPRESSION: 1. Mild degenerative change. Soft tissue injury without acute bony finding. Report Dictated By: Pedro Ventura MD at 08/07/2017 10:09 AM Report E-Signed By: Pedro Ventura MD at 08/07/2017 10:11 AM WSN:[id number] [place]ACILITY: [facility] [place] PATIENT NAME: Maggie Dennis : 1930 MR: [id number] V: [id number] EXAM DATE: ORDERING PHYSICIAN: JONES PEREZ TECHNOLOGIST: Location: [facility] [place] Patient: Maggie Dennis : 1930 Visit/Account:[id number] Date of Sevice: 08/07/2017 2 views left wrist Indication: Trauma Comparison: None Available. Findings: Bones are osteopenic. Distal radius and ulna are intact. The sequelae of an old ulnar styloid fracture is noted. Degenerative changes seen at the first CMC joint. 2 views demonstrate no evidence of acute fracture or destructive osseous process. IMPRESSION: 1. Osteopenia with degenerative change. No evidence of acute osseous finding. Report Dictated By: Pedro Ventura MD at 08/07/2017 10:05 AM Report E-Signed By: Pedro Ventura MD at 08/07/2017 10:06 AM WSN:[id number] FACILITY: [facility] [place] PATIENT NAME: Maggie Dennis : 1930 MR: [id number] V: [id number] EXAM DATE: ORDERING PHYSICIAN: JONES PEREZ TECHNOLOGIST: Location: [facility] [place] Patient: Maggie Dennis : 1930 Visit/Account:[id number] Date of Sevice: 08/07/2017 3 views left hand Indication: Trauma Comparison: None Available. Findings: Bones are osteopenic. Distal radius and ulna are intact. Old ulnar styloid fracture is noted. Mild degenerative change first CMC joint. A ring overlies proximal phalanx fourth ray. Metacarpal and phalangeal bones are without acute fracture. Degenerative changes are seen at the interphalangeal Gtz, most significant including the DIP joints of the second and third rays. IMPRESSION: 1. Osteopenia. Multifocal degenerative change without acute bony finding. Report Dictated By: Pedro Ventura MD at 08/07/2017 10:18 AM Report E-Signed By: Pedro Ventura MD at 08/07/2017 10:19 AM WSN:[id number] ED Course/Re-evaluation ED Course Plan at this time will be to medical screening exam we'll also do a CT of the head and neck. We'll x-ray the left hand wrist and elbow. 08/07/2017 11:37:16 am Procedure: Laceration repair. Verbal consent was obtained from the patient. The 3cm laceration on the left forearm was anesthetized in the usual fashion. The wound was cleansed, draped and explored to its base with a gloved finger. There were no deep structures involved. No tendon injury was identified. The wound was repaired with 7 single interrupted 4-0 nylon sutures. The wound repair was simple. The procedure was performed by myself. Decision to Disposition Date: Aug 07, 2017 Decision to Disposition Time: 11:38 Depart Departure Latest Vital Signs Vital Signs Date Time Temp Pulse Resp B/P (MAP) Pulse Ox O2 Delivery O2 Flow Rate FiO2 08/07/17 10:50 82 11 93 08/07/17 10:30 109/51 (70) 08/07/17 09:03 10.0 08/07/17 08:38 98.6 Room Air Impression: Primary Impression: Dementia Additional Impression: Pleural effusion due to CHF (congestive heart failure) Condition: Condition Unchanged Disposition: Admitted from ER (to Dr Riggins) Referrals: MAGGY DIEZ MD (PCP) Problem Qualifiers Primary Impression: Dementia Dementia type: unspecified type Dementia behavioral disturbance: without behavioral disturbance Qualified Codes: F03.90 - Unspecified dementia without behavioral disturbance JONES PEREZ MD Aug 07, 2017 08:32
[2017-08-07] MEDS ORDERED: LORazepam 2 MG/ML VIAL IVP ONE (08:45)
--- NOTE | 2017-08-07 08:55 | EKG ---
FACILITY: [facility] [place] PATIENT NAME: BEKAH HERRING : [id number] MR: [id number] V: [id number] EXAM DATE: ORDERING PHYSICIAN: JONES PEREZ TECHNOLOGIST: ROBERT Test Reason : FALL Blood Pressure : / mmHG Vent. Rate : 080 BPM Atrial Rate : 098 BPM P-R Int : 000 ms QRS Dur : 076 ms QT Int : 294 ms P-R-T Axes : 000 041 180 degrees QTc Int : 339 ms Atrial fibrillation Nonspecific ST and T wave abnormality , probably digitalis effect Abnormal ECG When compared with ECG of 05-AUG-2017 15:49, Nonspecific T wave abnormality, worse in Inferior leads Confirmed by TYLOR HUANG ([id number]) on 08/07/2017 11:29:33 AM Referred By: ANA Confirmed By:TYLOR HUANG
[2017-08-07 08:59] LABS: PLATELET COUNT, AUTOMATED 158 K/uL (150-450)
[2017-08-07 09:09] LABS: INR 1.15
--- NOTE | 2017-08-07 10:10 | RADIOLOGY IMAGING REPORT ---
FACILITY: [facility] PATIENT NAME: Maggie Dennis : 1930 MR: [id number] V: [id number] EXAM DATE: ORDERING PHYSICIAN: JONES PEREZ TECHNOLOGIST: Location: [facility] [place] Patient: Maggie Dennis : 1930 Visit/Account:[id number] Date of Sevice: 08/07/2017 2 views left wrist Indication: Trauma Comparison: None Available. Findings: Bones are osteopenic. Distal radius and ulna are intact. The sequelae of an old ulnar styloid fractur e is noted. Degenerative changes seen at the first CMC joint. 2 views demonstrate no evidence of acut e fracture or destructive osseous process. IMPRESSION: 1. Osteopenia with degenerative change. No evidence of acute osseous finding. Report Dictated By: Pedro Ventura MD at 08/07/2017 10:05 AM Report E-Signed By: Pedro Ventura MD at 08/07/2017 10:06 AM WSN:[id number]
[2017-08-07] MEDS ORDERED: fentaNYL CITR 100 MCG/2 ML AMP IVP ONE (10:15)
--- NOTE | 2017-08-07 10:17 | RADIOLOGY IMAGING REPORT ---
FACILITY: [facility] PATIENT NAME: Maggie Dennis : 1930 MR: [id number] V: [id number] EXAM DATE: ORDERING PHYSICIAN: JONES PEREZ TECHNOLOGIST: Location: [facility] [place] Patient: Maggie Dennis : 1930 Visit/Account:[id number] Date of Sevice: 08/07/2017 3 views left elbow Indication: Trauma Comparison: None Available Findings: There is overlying soft tissue swelling. Somewhat difficult to tell on the lateral view if there is a n effusion due to the adjacent soft tissue injury. Osseous alignment appears anatomic. There is mild degenerative change. Subtle spurring is seen at the tip of the coronoid process. No fracture. No defi nite effusion. IMPRESSION: 1. Mild degenerative change. Soft tissue injury without acute bony finding. Report Dictated By: Pedro Ventura MD at 08/07/2017 10:09 AM Report E-Signed By: Pedro Ventura MD at 08/07/2017 10:11 AM WSN:[id number]
--- NOTE | 2017-08-07 10:17 | RADIOLOGY IMAGING REPORT ---
FACILITY: [facility] PATIENT NAME: Maggie Dennis : 1930 MR: [id number] V: [id number] EXAM DATE: ORDERING PHYSICIAN: JONES PEREZ TECHNOLOGIST: Location: [facility] Patient: Maggie Dennis : 1930 Visit/Account:[id number] Date of Sevice: 08/07/2017 EXAMINATION: CT cervical spine without IV contrast HISTORY: Trauma. COMPARISON: None. TECHNIQUE: Axial images were obtained from the skull base through the upper thoracic spine without I V contrast administration. Coronal and sagittal reformatted images were obtained from the axial [facility] e data. One of the following dose optimization techniques was utilized in the performance of this exam: Autom ated exposure control; adjustment of the mA and/or kV according to the patient's size; or use of an i terative reconstruction technique. Specific details can be referenced in the facility's radiology C T exam operational policy. FINDINGS: The exam is mildly limited by patient motion artifact. Alignment: Grade 1 anterolisthesis at C4-5 measuring less than 2 mm. Cranio-cervical junction: Negative. Vertebral bodies: Negative. Posterior elements: Multilevel facet and uncovertebral hypertrophy, left greater than right. Hardware: None. Disc spaces: Moderate disc space narrowing and endplate sclerosis at C5-6 and C6-7. Soft tissues: Atherosclerotic calcifications of the aortic arch and carotid bulbs. Visualized upper chest: Moderate to large bilateral pleural effusions layering posteriorly. IMPRESSION: 1. No acute fracture of the cervical spine. 2. Moderate degenerative disc disease at C5-6 and C6-7, and multilevel facet and uncovertebral arthro valentine. 3. Grade 1 degenerative anterolisthesis at C4-5. 4. Moderate to large bilateral pleural effusions partly visualized. Report Dictated By: Jane Genao MD at 08/07/2017 10:09 AM Report E-Signed By: Jane Genao MD at 08/07/2017 10:14 AM WSN:[id number]
--- NOTE | 2017-08-07 10:22 | RADIOLOGY IMAGING REPORT ---
FACILITY: [facility] [place] PATIENT NAME: Maggie Dennis : 1930 MR: [id number] V: [id number] EXAM DATE: ORDERING PHYSICIAN: JONES PEREZ TECHNOLOGIST: Location: [facility] Patient: Maggie Dennis : 1930 Visit/Account:[id number] Date of Sevice: 08/07/2017 EXAMINATION: CT head without IV contrast HISTORY: Trauma. COMPARISON: CT head from 08/05/2017. TECHNIQUE: Contiguous axial images were obtained from the skull base to the vertex without intraven ous contrast. Sagittal and coronal reformatted images are also submitted. One of the following dose optimization techniques was utilized in the performance of this exam: Autom ated exposure control; adjustment of the mA and/or kV according to the patient's size; or use of an i terative reconstruction technique. Specific details can be referenced in the facility's radiology C T exam operational policy. FINDINGS: The exam is mildly limited by patient motion artifact. Brain volume: Mild generalized atrophy with associated concordant prominence of the ventricular syst em. Ventricles: Normal. Acute ischemic changes: None. Hemorrhage: No acute intracranial hemorrhage. Masses/edema: None. Serna-white: Negative. White matter: Patchy and confluent hypodensities in the deep white matter bilaterally. Vessels: Calcified plaque of both carotid siphons. Extra-axial: Negative. Calvarium/scalp: No acute fracture. Skull base/visualized face: Negative. Visualized sinuses/orbits: Previous right lens surgery and bilateral scleral banding. IMPRESSION: 1. No acute fracture, hemorrhage or intracranial mass lesion. No CT evidence of acute infarct. 2. Moderate to severe nonspecific white matter disease suspicious for chronic small vessel ischemia. Report Dictated By: Jane Genao MD at 08/07/2017 10:16 AM Report E-Signed By: Jane Genao MD at 08/07/2017 10:19 AM WSN:[id number]
--- NOTE | 2017-08-07 10:23 | RADIOLOGY IMAGING REPORT ---
[place] [facility] [place] : 1930 MR: [id number] V: [id number] EXAM DATE: ORDERING PHYSICIAN: JONES PEREZ TECHNOLOGIST: Location: [facility] [place] Patient: Maggie Dennis : 1930 Visit/Account:[id number] Date of Sevice: 08/07/2017 3 views left hand Indication: Trauma Comparison: None Available. Findings: Bones are osteopenic. Distal radius and ulna are intact. Old ulnar styloid fracture is noted. Mild de generative change first CMC joint. A ring overlies proximal phalanx fourth ray. Metacarpal and phalangeal bones are without acute fractu re. Degenerative changes are seen at the interphalangeal Gtz, most significant including the DIP nakul ints of the second and third rays. IMPRESSION: 1. Osteopenia. Multifocal degenerative change without acute bony finding. Report Dictated By: Pedro Ventura MD at 08/07/2017 10:18 AM Report E-Signed By: Pedro Ventura MD at 08/07/2017 10:19 AM WSN:[id number]
--- NOTE | 2017-08-07 10:23 | RADIOLOGY IMAGING REPORT ---
[place] [facility] [place] NAME: Maggie Dennis : 1930 MR: [id number] V: [id number] EXAM DATE: ORDERING PHYSICIAN: JONES PEREZ TECHNOLOGIST: Location: [facility] [place] Patient: Maggie Dennis : 1930 Visit/Account:[id number] Date of Sevice: 08/07/2017 CHEST W/O CONTRAST History: fall TECHNIQUE: Contiguous axial images were performed through the chest to the level of the adrenal gla nds. No IV contrast was administered. Coronal and sagittal reformatting was also performed. One of t he following dose optimization techniques was utilized in the performance of this exam: Automated exp osure control; adjustment of the mA and/or kV according to the patient's size; or use of an iterative reconstruction technique. Specific details can be referenced in the facility's radiology CT exam o perational policy. COMPARISON STUDIES: none. Lungs / Pleura: There are large bilateral pleural effusions with associated bibasilar compressive a telectasis. Upper lung zones are aerated. Mediastinum/nodes: There are multiple small mediastinal lymph nodes measuring approximately 1 cm in diameter which is still within normal limits. Heart and vessels: Heart is globally enlarged. Musculoskeletal / Body wall: Osseous structures intact without evidence of fractures. Upper abdomen: Beyond the [id number]. IMPRESSION: Large bilateral pleural effusions with bilateral compressive atelectasis. This is probably related to congestive heart failure as there is global cardiomegaly. No evidence of acute trauma. Results were called to JONES PEREZ at 08/07/2017 10:13 AM. Report Dictated By: Anuel Murrell MD at 08/07/2017 10:13 AM Report E-Signed By: Anuel Murrell MD at 08/07/2017 10:18 AM WSN:[id number]
[2017-08-07] MEDS ORDERED: FUROSEMIDE 20 MG/2 ML VIAL IVP ONE ×3 (11:10→18:25)
[2017-08-07 12:22] VITALS: BP 120/64
--- NOTE | 2017-08-07 13:00 | History & Physical ---
History of Present Illness Chief Complaint Shortness of breath and falls History of Present Illness This patient was brought to the emergency room with complaints of shortness of breath and falls. She was discharged from [facility] about a month ago and has been living at [facility]. Her son reports that she has been having increased restlessness at night and falling over her oxygen tubing. History Problems: (1) Chronic heart failure (2) Dementia Status: Chronic Home Meds Active Scripts Cephalexin 500 Mg Tab (KEFLEX 500 MG TAB) 500 Mg Tablet, 500 MG PO Q6H, #26 TAB Prov:JEY ANGEL RISK [employer]OL PRODUCT LIABILITY DIRECTOR 08/05/17 Reported Medications Metoprolol Succinate (TOPROL XL) 50 Mg Tab.er.24h, 1 TAB PO QDAY, TAB 08/05/17 Mag Hydrox/Aluminum Hyd/Simeth (Maalox Advanced Suspension) 200 Mg-200 Mg-20 Mg/ 5 Ml Oral.susp, 15 08/05/17 Magnesium Hydroxide (MILK OF MAGNESIA) 400 Mg/5 Ml Oral.susp, 400 MG PO, BOTTLE 08/05/17 Furosemide (LASIX) 20 Mg Tablet, 2 TAB PO DAILY, TAB 08/05/17 Loperamide HCl (Imodium A-D) 2 Mg Capsule 08/05/17 Ferrous Sulfate (FERROUS SULFATE) 325 Mg Tablet, 325 MG PO BID 08/05/17 Apixaban (ELIQUIS) 2.5 Mg Tablet, 2.5 MG PO BID 08/05/17 Digoxin (DIGOXIN) 125 Mcg Tablet, 125 MCG PO QDAY 08/05/17 Ipratropium/Albuterol Sulfate (COMBIVENT RESPIMAT INHAL SPRAY) 4 Gm Aer.w.adap, 1 EACH IH QID 08/05/17 Famotidine/Ca Carb/Mag Hydrox (TUMS DUAL ACTION TABLET CHEW) 1 Each Tab.chew, 1 EACH PO, TAB.CHEW 08/05/17 Acetaminophen (TYLENOL) 325 Mg Tablet, 325 MG PO q4h prn, TAB 08/05/17 Allergies: Coded Allergies: No Known Drug Allergies (Unverified , 08/07/17) Hx Alcohol Use: No Review of Systems All Systems Reviewed/Normal: Yes, Except as Noted Neurological: Confusion Respiratory: Shortness of Breath Exam Vital Signs Vital Signs Date Time Temp Pulse Resp B/P (MAP) Pulse Ox O2 Delivery O2 Flow Rate FiO2 08/07/17 12:22 96.5 73 18 120/64 (82) 95 Oxy Mask 12.0 Neuro: No Gross deficits Eyes: PERRLA Cardiovascular: Regular Rate and Rhythm Respiratory: Other (Diminished breath sounds bilateral.) GI: Abd Soft and Non-Tender Extremities: Edema Integumentary: No Cyanosis Medical Decision Making Data Points Result Diagram: 08/07/17 0846 08/07/17 0846 Item Value Date Time B-Type Natriuretic Peptide 410 pg/ml H 08/07/17 0000 EKG / Imaging Imaging Chest CT reviewed. Assessment and Plan Problems: (1) Acute systolic heart failure Assessment & Plan: She present with increased shortness of breath. Her CT scan shows large bilateral pleural effusions. She was recently admitted to the hospital in [place] for heart failure. We will try to obtain those records. She has been started on Lasix. Daily weight monitoring has been ordered. (2) Dementia Status: Chronic Assessment & Plan: She does reside at [facility]. (3) Chronic a-fib Assessment & Plan: She is on chronic treatment with Eliquis, which has been placed on hold currently. Copies to: LIAM RODRIGUEZ MD Venous Thromboembolism Antithrombotics Is Pt On Any Antithrombotics?: Yes Exam Sepsis Risk: No Definite Risk Problem Qualifiers (1) Dementia: Dementia type: unspecified type Dementia behavioral disturbance: without behavioral disturbance Qualified Codes: F03.90 - Unspecified dementia without behavioral disturbance TYLOR HUANG DO Aug 07, 2017 13:00
[2017-08-07 15:19] VITALS: BP 111/74
[2017-08-07] MEDS ORDERED: FUROSEMIDE 40 MG/4 ML VIAL IVP ONE (18:30)
[2017-08-07] MEDS: FERROUS SULFATE 325 MG TAB PO SCH (21:00)
[2017-08-07 21:54] VITALS: BP 127/72
[2017-08-07 23:07] VITALS: BP 116/66
[2017-08-08 03:46] VITALS: BP 127/55
[2017-08-08 05:48] LABS: PLATELET COUNT, AUTOMATED 147 K/uL (150-450)
--- NOTE | 2017-08-08 06:42 | RADIOLOGY IMAGING REPORT ---
FACILITY: [facility] [place] PATIENT NAME: Maggie Dennis : 1930 MR: [id number] V: [id number] EXAM DATE: ORDERING PHYSICIAN: TYLOR HUANG TECHNOLOGIST: Location: [facility] Patient: Maggie Dennis : 1930 Visit/Account:[id number] Date of Sevice: 08/08/2017 Portable chest: Indication: Pleural effusions. Technique: A single frontal film was obtained. Comparison: 08/05/2017 Skeletal and soft tissue structures: Intact and unremarkable. Heart and mediastinum: Stable. Lung dougherty: There is persistent parenchymal consolidation and volume loss in the lower lung dougherty, left greater than right. Vascular congestion appears unchanged. Pleural spaces: Bilateral effusions persist. There has been slight improvement. There is no definite evidence of pneumothorax. Impression: Persistent bilateral parenchymal and pleural abnormalities. Slight interval improvement. Report Dictated By: Kirk Pope MD at 08/08/2017 6:34 AM Report E-Signed By: Kirk Pope MD at 08/08/2017 6:38 AM WSN:[id number]
[2017-08-08 07:20] VITALS: BP 130/76
[2017-08-08] MEDS: FERROUS SULFATE 325 MG TAB PO SCH ×2 (08:51→21:24)
[2017-08-08] MEDS: DIGOXIN 0.125 MG TAB PO SCH (08:54)
[2017-08-08] MEDS ORDERED: FUROSEMIDE 20 MG/2 ML VIAL IVP ONE (09:50)
[2017-08-08] MEDS: METOPROLOL SUCC XL 50 MG TABCR 50 MG TAB.ER.24H PO SCH (10:29)
[2017-08-08 11:22] VITALS: BP 133/73
[2017-08-08 15:31] VITALS: BP 120/59
[2017-08-08] MEDS: POTASSIUM CHL 10 MEQ TABCR PO SCH (16:38)
--- NOTE | 2017-08-08 17:35 | Hospitalist Progress Note ---
Subjective Progress Notes Subjective The patient states she is feeling better today. Physical Exam Vital Signs Date Time Temp Pulse Resp B/P (MAP) Pulse Ox O2 Delivery O2 Flow Rate FiO2 08/08/17 15:31 98.7 84 20 120/59 (79) 92 Nasal Cannula 10.0 08/08/17 07:20 75.0 Intake and Output 08/09/17 07:00 Intake Total 1620 ml Output Total 1475 ml Balance 145 ml Intake Oral 1620 ml Output Urine Total 1475 ml General Appearance: Alert, Awake, No Acute Distress, Afebrile Neuro: Other (Confused. Short term memory is poor.) Eyes: PERRLA Cardiovascular: Regular Rate and Rhythm Respiratory: Clear to Auscultation (Anteriorly. Decreased BS both bases.) GI: Soft and Non-Tender Extremities: Warm, Perfused, Edema (Trace to 1+) Integumentary: Generalized Fragile Skin Psych: Appropriate Mood & Affect Result Diagram: 08/08/1753708/08/17537 Assessment and Plan Problems: (1) Acute systolic heart failure Assessment & Plan: She present with increased shortness of breath. Her CT scan shows large bilateral pleural effusions. She was recently admitted to the hospital in [place] for heart failure. Per review of those records, she most was felt to have diastolic heart failure with EF of 50-55%, severe LAE, moderate to severe mitral regurgitation, trace to mild aortic regurgitation, moderate to severe tricuspid regurgitation. She has pHTN with moderate elevation of pulmonary artery pressure at 48mmHg. She has been started on Lasix. Daily weight monitoring has been ordered. (2) Dementia Status: Chronic Assessment & Plan: She does reside at [facility] in the memory care unit. (3) Chronic a-fib Assessment & Plan: She is on chronic treatment with Eliquis, which has been placed on hold currently due to falls and nosebleed. Time Spent on Plan of Care: < 30 min Exam Sepsis Risk: No Definite Risk Problem Qualifiers (1) Dementia: Dementia type: unspecified type Dementia behavioral disturbance: without behavioral disturbance Qualified Codes: F03.90 - Unspecified dementia without behavioral disturbance BRYAN MADDOX MD Aug 08, 2017 17:35
[2017-08-08 19:10] VITALS: BP 109/42
[2017-08-08 23:43] VITALS: BP 127/72
[2017-08-09 02:48] VITALS: BP 130/75
[2017-08-09 06:00] LABS: PLATELET COUNT, AUTOMATED 137 K/uL (150-450)
[2017-08-09 07:25] VITALS: BP 123/74
[2017-08-09] MEDS: POTASSIUM CHL 10 MEQ TABCR PO SCH ×2 (08:35→17:35)
[2017-08-09] MEDS: DIGOXIN 0.125 MG TAB PO SCH (08:36)
[2017-08-09] MEDS: FERROUS SULFATE 325 MG TAB PO SCH ×2 (08:36→20:42)
[2017-08-09] MEDS: METOPROLOL SUCC XL 50 MG TABCR 50 MG TAB.ER.24H PO SCH (08:36)
[2017-08-09] MEDS ORDERED: INFLUENZA VIRUS VAC 0.5 ML SYR IM ONLY ONE (09:00)
[2017-08-09] MEDS ORDERED: FUROSEMIDE 20 MG/2 ML VIAL IVP ONE (09:45)
[2017-08-09 10:47] VITALS: BP 92/51
--- NOTE | 2017-08-09 11:19 | Hospitalist Progress Note ---
Subjective Progress Notes Subjective She is confused, pleasant. Ramirez cath now has some blood and small clots. Physical Exam Vital Signs Date Time Temp Pulse Resp B/P (MAP) Pulse Ox O2 Delivery O2 Flow Rate FiO2 08/09/17 10:47 97.9 68 16 92/51 (65) 91 Oxy Mask 9.0 08/08/17 07:20 75.0 Intake and Output 08/10/17 07:00 Intake Total 240 ml Balance 240 ml Intake Oral 240 ml General Appearance: Alert, Awake Cardiovascular: Other (Irregular with systolic murmujr) Respiratory: Other (decreased breath sounds at bases with few rales bilaterally ) GI: Soft and Non-Tender Extremities: Warm, Perfused, Edema (trace-1+ both lower extremities) Integumentary: Generalized Fragile Skin Result Diagram: 08/09/1751608/09/17516 Assessment and Plan Problems: (1) Acute systolic heart failure Assessment & Plan: She present with increased shortness of breath. Her CT scan shows large bilateral pleural effusions. She was recently admitted to the hospital in [place] for heart failure. Per review of those records, she most was felt to have diastolic heart failure with EF of 50-55%, severe LAE, moderate to severe mitral regurgitation, trace to mild aortic regurgitation, moderate to severe tricuspid regurgitation. She has pulmonary HTN with moderate elevation of pulmonary artery pressure at 48mmHg. She has been receiving some Lasix as she tolerates. Daily weight monitoring has been ordered. Will need to discuss with family regarding their wishes for dedicated intermodal truck driver management. She did have a palliative care evaluation while in [facility] and decision at that time was for focus on comfort measures. (2) Dementia Status: Chronic Assessment & Plan: She does reside at [facility] in the memory care unit. (3) Chronic a-fib Assessment & Plan: She is on chronic treatment with Eliquis, which has been placed on hold currently due to falls and nosebleed. (4) Hematuria Status: Acute Assessment & Plan: May be due to Ramirez cath placement. Could also be due to potential UTI. Will check UA and culture. Treat as needed. Will need to leave cath in for now - until clots clear. Exam Sepsis Risk: No Definite Risk Problem Qualifiers (1) Dementia: Dementia type: unspecified type Dementia behavioral disturbance: without behavioral disturbance Qualified Codes: F03.90 - Unspecified dementia without behavioral disturbance EFE MADDOX MD Aug 09, 2017 11:19
[2017-08-09 15:23] VITALS: BP 97/49
[2017-08-09 17:27] VITALS: Ht 160 cm; Wt 49.9 kg
[2017-08-09 18:39] VITALS: BP 108/53
[2017-08-09] MEDS ORDERED: cefTRIAXone 1 GM VIAL IVP SCH (21:00)
[2017-08-09 23:09] VITALS: BP 115/61
[2017-08-10 03:17] VITALS: BP 133/91
[2017-08-10 05:49] LABS: PLATELET COUNT, AUTOMATED 129 K/uL (150-450)
--- NOTE | 2017-08-10 06:41 | RADIOLOGY IMAGING REPORT ---
FACILITY: [facility] PATIENT NAME: Maggie Dennis : 1930 MR: [id number] V: [id number] EXAM DATE: ORDERING PHYSICIAN: EFE MADDOX TECHNOLOGIST: Location: [facility] [place] Patient: Maggie Dennis : 1930 Visit/Account:[id number] Date of Sevice: 08/10/2017 PORTABLE CHEST: Indication: CHF and pleural effusions. Technique: A single frontal film was obtained. Comparison: 08/08/2017 Skeletal and soft tissue structures: Intact and unchanged. Heart and mediastinum: Stable, as visualized. Lung dougherty: There is worsening consolidation and volume loss in the left lung. The right lung is unc hanged. Pleural spaces: The left effusion has increased significantly and is now large. The right effusion ap pears unchanged. Impression: A large left effusion is now present. The chest is otherwise unchanged. Report Dictated By: Kirk Pope MD at 08/10/2017 6:34 AM Report E-Signed By: Kirk Pope MD at 08/10/2017 6:36 AM WSN:[id number]
[2017-08-10 07:34] VITALS: BP 128/81
[2017-08-10] MEDS: METOPROLOL SUCC XL 50 MG TABCR 50 MG TAB.ER.24H PO SCH (08:20)
[2017-08-10] MEDS: POTASSIUM CHL 10 MEQ TABCR PO SCH ×2 (08:20→17:22)
[2017-08-10] MEDS: DIGOXIN 0.125 MG TAB PO SCH (08:21)
[2017-08-10] MEDS: FERROUS SULFATE 325 MG TAB PO SCH ×2 (08:21→20:45)
[2017-08-10] MEDS: FUROSEMIDE 40 MG/4 ML VIAL IVP SCH ×2 (09:44→14:05)
[2017-08-10 10:40] VITALS: BP 113/67
--- NOTE | 2017-08-10 11:23 | Hospitalist Progress Note ---
Subjective Progress Notes Subjective This patient was admitted for acute hear failure. She had no acute changes overnight. Patient Complains of: Cardiovascular: No: Chest Pain Respiratory: No: Shortness of Breath Physical Exam Vital Signs Date Time Temp Pulse Resp B/P (MAP) Pulse Ox O2 Delivery O2 Flow Rate FiO2 08/10/17 10:40 97.0 62 16 113/67 (82) 91 High-Flow Nasal Cannula 14.0 08/08/17 07:20 75.0 Intake and Output 08/11/17 07:00 Intake Total 120 ml Balance 120 ml Intake Oral 120 ml Cardiovascular: Regular Rate and Rhythm Respiratory: Other (Diminished breath sounds bilateral.) Result Diagram: 08/10/17 0535 08/10/17 0535 Imaging Chest x-ray reviewed. Assessment and Plan Problems: (1) Acute diastolic (congestive) heart failure Assessment & Plan: She present with increased shortness of breath. Her CT scan shows large bilateral pleural effusions. She was recently admitted to the hospital in [place] for heart failure. Per review of those records, she most was felt to have diastolic heart failure with EF of 50-55%, severe LAE, moderate to severe mitral regurgitation, trace to mild aortic regurgitation, moderate to severe tricuspid regurgitation, and pulmonary hypertension with moderate elevation of pulmonary artery pressure at 48mmHg. She has received intermittent dosing with Lasix, but her weight has not changed significantly and her effusions appear to be enlarged. We will schedule her Lasix today. (2) Dementia Status: Chronic Assessment & Plan: She does reside at [facility] in the memory care unit. (3) Chronic a-fib Assessment & Plan: She is on chronic treatment with Eliquis, which has been placed on hold currently due to falls and nosebleed. (4) Hematuria Status: Acute Assessment & Plan: She likely had some trauma associated with her catheter. We have ordered a urinalysis for tomorrow to be sure that this is clearing. Exam Sepsis Risk: No Definite Risk Problem Qualifiers (1) Dementia: Dementia type: unspecified type Dementia behavioral disturbance: without behavioral disturbance Qualified Codes: F03.90 - Unspecified dementia without behavioral disturbance TYLOR HUANG DO Aug 10, 2017 11:23
[2017-08-10 15:25] VITALS: BP 104/69
[2017-08-10 18:58] VITALS: BP 117/73
[2017-08-10 23:07] VITALS: BP 115/67
[2017-08-11 07:14] VITALS: BP 124/73
[2017-08-11 08:24] VITALS: BP 128/85
[2017-08-11] MEDS: METOPROLOL SUCC XL 50 MG TABCR 50 MG TAB.ER.24H PO SCH (08:26)
[2017-08-11] MEDS: FERROUS SULFATE 325 MG TAB PO SCH ×2 (08:26→21:37)
[2017-08-11] MEDS: POTASSIUM CHL 10 MEQ TABCR PO SCH ×2 (08:26→16:51)
[2017-08-11] MEDS: DIGOXIN 0.125 MG TAB PO SCH (08:27)
[2017-08-11] MEDS: FUROSEMIDE 40 MG/4 ML VIAL IVP SCH ×2 (08:28→13:28)
[2017-08-11 11:27] VITALS: BP 109/73
--- NOTE | 2017-08-11 13:42 | Medical Nutrition Therapy ---
Nutrition Anthropometrics Height (Inches): 63.00 Height (Calculated Centimeters: 160.569581 Weight (Pounds): 128 Weight (Calculated Kilograms): 58.117 BMI Calculated: 22.67 Antony Nutrition Score: Probably Inadequate Antony Nutrition Risk Score: 15 Dietary Referral Nutrition Risk Factors: Nutrition Risk Comment: Nutritional Diagnosis Nutritional Risk Acuity 2: CHF w/Complication Past Medical History: dementia, chronic a-fib Nutritional Acuity: 2-Moderate Nutrition Diagnosis: Nutr. Knowledge Deficit Nutrition Etiology: Impaired Cognitive Abilty Nutrition Problem/Etiology/Sym: acute CHF with a history of dementia. Energy Requirement: 1290 (kcal/day (22 kcal/kg)- [place] RMR 979 AF 1.2, IF 1.1 ) Protein Requirement: 58 (g/day (1.0 g/kg)) Fluid Requirement: 1450 (mL/day (25 mL/kg)) Diet Type: CHF Diet Nutrition Intervention: Cont diet as ordered, Encourage intake Nutrition Monitoring & Eval Nutrition Goals: Eat 75-100% Meal Nutrition Follow-Up: Good Intake RD Patient Assessment Time: [address] Assessment Type: RD Assessment Patient Nutrition Acuity: 2-Moderate Follow Up Date: Aug 13, 2017 Nutritional Comment: 08/08 pt admitted with CHF. pt on CHF diet and eating 50% of meals. alb 3.2. Will cont to monitor and encourage intake. 08/10 Pt remains on a CHF diet and eating 50 - 100% of meals. alb 3.2 BUN 20. Will continue to monitor pt and encourage adequate intake. LYUDMILA FERNANDO Aug 10, 2017 14:39
--- NOTE | 2017-08-11 15:38 | Hospitalist Progress Note ---
Subjective Progress Notes Subjective The patient denies shortness of breath today. Physical Exam Vital Signs Date Time Temp Pulse Resp B/P (MAP) Pulse Ox O2 Delivery O2 Flow Rate FiO2 08/11/17 11:27 97.9 78 16 109/73 (85) 97 High-Flow Nasal Cannula 9.0 08/11/17 08:00 75.0 Intake and Output 08/12/17 06:59 Intake Total 540 ml Output Total 1450 ml Balance -910 ml Intake Oral 540 ml Output Urine Total 1450 ml # Voids 1 General Appearance: Alert, Awake, No Acute Distress Neuro: Other (Confused.) Eyes: PERRLA Cardiovascular: Other (Irregularly irregular with a systolic murmur.) Respiratory: No Respiratory Distress, Other (Decreased BS L mid and lower lung field with mid lung field "squeak". Decreased BS R lower lung field. ) GI: Other (Slightly distended but soft, nontender.) Extremities: Warm, Perfused, Other (Edema has nearly resolved. Skin is wrinkly. ) Integumentary: Other (Both LE with wrinkled skin. Chronic venous stasis changes.) Psych: Appropriate Mood & Affect (Confused.) Result Diagram: 08/10/17 0535 08/11/17 0525 Assessment and Plan Problems: (1) Acute diastolic (congestive) heart failure Assessment & Plan: She present with increased shortness of breath. Her CT scan shows large bilateral pleural effusions. She was recently admitted to the hospital in [place] for heart failure. Per review of those records, she most was felt to have diastolic heart failure with EF of 50-55%, severe LAE, moderate to severe mitral regurgitation, trace to mild aortic regurgitation, moderate to severe tricuspid regurgitation, and pulmonary hypertension with moderate elevation of pulmonary artery pressure at 48mmHg. She has received intermittent dosing with Lasix, but her weight has not changed significantly and her effusions appear to be enlarged. We will schedule her Lasix today. The family did bring by her POLST form. It request care directed for comfort. I talked with her son and he agrees with comfort directed measures. The patient is currently not short of breath. Will not arrange for a thoracentesis. He is hoping she can go back to [facility] with Home Health and private helpers if needed. (2) Dementia Status: Chronic Assessment & Plan: She does reside at [facility] in the memory care unit. (3) Chronic a-fib Assessment & Plan: She is on chronic treatment with Eliquis, which has been placed on hold currently due to falls and nosebleed. Will not restart due to focus on comfort directed care. (4) Hematuria Status: Acute Assessment & Plan: She likely had some trauma associated with her catheter. Repeat UA shows marked improvement. Will DC Ramirez catheter. Time Spent on Plan of Care: < 30 min Exam Sepsis Risk: No Definite Risk Problem Qualifiers (1) Dementia: Dementia type: unspecified type Dementia behavioral disturbance: without behavioral disturbance Qualified Codes: F03.90 - Unspecified dementia without behavioral disturbance BRYAN MADDOX MD Aug 11, 2017 15:38
[2017-08-11 16:05] VITALS: BP 111/70
[2017-08-11 19:55] VITALS: BP 122/80
[2017-08-12] VITALS (7 sets, daily range): BP systolic 95–132; BP diastolic 52–92
[2017-08-12 06:11] LABS: PLATELET COUNT, AUTOMATED 141 K/uL (150-450)
[2017-08-12] MEDS: METOPROLOL SUCC XL 50 MG TABCR 50 MG TAB.ER.24H PO SCH (08:36)
[2017-08-12] MEDS: DIGOXIN 0.125 MG TAB PO SCH (08:36)
[2017-08-12] MEDS: FUROSEMIDE 40 MG/4 ML VIAL IVP SCH ×2 (08:36→13:39)
[2017-08-12] MEDS: FERROUS SULFATE 325 MG TAB PO SCH ×2 (08:36→20:16)
[2017-08-12] MEDS: POTASSIUM CHL 10 MEQ TABCR PO SCH ×2 (08:36→16:54)
--- NOTE | 2017-08-12 12:15 | Hospitalist Progress Note ---
Subjective Progress Notes Subjective No concerns from the patient or her son. Physical Exam Vital Signs Date Time Temp Pulse Resp B/P (MAP) Pulse Ox O2 Delivery O2 Flow Rate FiO2 08/12/17 11:25 97.5 61 16 95/52 (66) 89 High-Flow Nasal Cannula 7.0 08/11/17 08:00 75.0 Intake and Output 08/13/17 07:00 Intake Total 240 ml Balance 240 ml Intake Oral 240 ml # Voids 1 General Appearance: Alert, Awake, No Acute Distress Neuro: Other (Confused to place and why she is here) Extremities: Edema (Trace pitting in shins bilaterally) Result Diagram: 08/12/1754108/12/17541 Assessment and Plan Problems: (1) Acute diastolic (congestive) heart failure Assessment & Plan: She present with increased shortness of breath. Her CT scan shows large bilateral pleural effusions. She was recently admitted to the hospital in [place] for heart failure. Per review of those records, she most was felt to have diastolic heart failure with EF of 50-55%, severe LAE, moderate to severe mitral regurgitation, trace to mild aortic regurgitation, moderate to severe tricuspid regurgitation, and pulmonary hypertension with moderate elevation of pulmonary artery pressure at 48mmHg. She has received intermittent dosing with Lasix, but her weight has not changed significantly and her effusions appear to be enlarged. The patient is currently not short of breath. Will not arrange for a thoracentesis. He is hoping she can go back to [facility] with Home Health and private helpers. Will aggressively diurese with IV Lasix to lower the O2 requirement as much as possible. Hospice referral has been sent (2) Dementia Status: Chronic Assessment & Plan: She does reside at [facility] in the memory care unit. (3) Chronic a-fib Assessment & Plan: She is on chronic treatment with Eliquis, which has been placed on hold currently due to falls and nosebleed. Will not restart due to focus on comfort directed care. (4) Hematuria Status: Acute Assessment & Plan: She likely had some trauma associated with her catheter. Repeat UA shows marked improvement. Will DC Ramirez catheter. Exam Sepsis Risk: No Definite Risk Problem Qualifiers (1) Dementia: Dementia type: unspecified type Dementia behavioral disturbance: without behavioral disturbance Qualified Codes: F03.90 - Unspecified dementia without behavioral disturbance SUZI MARINO MD Aug 12, 2017 12:15
[2017-08-13 05:32] VITALS: BP 112/60
[2017-08-13 07:07] VITALS: BP 112/59
[2017-08-13] MEDS: FERROUS SULFATE 325 MG TAB PO SCH ×2 (08:40→21:13)
[2017-08-13] MEDS: POTASSIUM CHL 10 MEQ TABCR PO SCH ×2 (08:40→17:24)
[2017-08-13] MEDS: METOPROLOL SUCC XL 50 MG TABCR 50 MG TAB.ER.24H PO SCH (08:40)
[2017-08-13] MEDS: DIGOXIN 0.125 MG TAB PO SCH (08:41)
[2017-08-13] MEDS: FUROSEMIDE 40 MG/4 ML VIAL IVP SCH ×2 (08:41→15:05)
--- NOTE | 2017-08-13 10:43 | Hospitalist Progress Note ---
Subjective Progress Notes Subjective This patient was admitted for worsening pleural effusions. She had no acute events overnight. Patient Complains of: Cardiovascular: No: Chest Pain Respiratory: No: Shortness of Breath Physical Exam Vital Signs Date Time Temp Pulse Resp B/P (MAP) Pulse Ox O2 Delivery O2 Flow Rate FiO2 08/13/17 08:41 64 08/13/17 07:07 20 112/59 (76) 87 High-Flow Nasal Cannula 7.0 08/12/17 23:23 98.2 08/11/17 08:00 75.0 Intake and Output 08/14/17 07:00 # Voids 1 Cardiovascular: Regular Rate and Rhythm Respiratory: Clear to Auscultation Extremities: No Edema Result Diagram: 08/12/17 0542 08/13/17 0537 Assessment and Plan Problems: (1) Acute diastolic (congestive) heart failure Assessment & Plan: She present with increased shortness of breath. Her CT scan did show large bilateral pleural effusions. She was recently admitted to the hospital in [place] for heart failure. Per review of those records, she was felt to have diastolic heart failure with EF of 50-55%, severe LAE, moderate to severe mitral regurgitation, trace to mild aortic regurgitation, moderate to severe tricuspid regurgitation, and pulmonary hypertension with moderate elevation of pulmonary artery pressure at 48mmHg. She has been started on scheduled IV Lasix. Her weights have improved approximately 7kg since admission. We are awaiting a repeat chest x-ray to check the status of her effusion. (2) Dementia Status: Chronic Assessment & Plan: She does reside at [facility] in the memory care unit. (3) Chronic a-fib Assessment & Plan: She is on chronic treatment with Eliquis, which has been discontinued due to falls and nosebleed. (4) Hematuria Status: Acute Assessment & Plan: She likely had some trauma associated with her catheter. Her repeat urinalysis has shown clearing. Exam Sepsis Risk: No Definite Risk Problem Qualifiers (1) Dementia: Dementia type: unspecified type Dementia behavioral disturbance: without behavioral disturbance Qualified Codes: F03.90 - Unspecified dementia without behavioral disturbance TYLOR HUANG DO Aug 13, 2017 10:43
[2017-08-13 11:50] VITALS: BP 110/56
--- NOTE | 2017-08-13 12:20 | Medical Nutrition Therapy ---
Nutrition Anthropometrics Height (Inches): 63.00 Height (Calculated Centimeters: [phone] Weight (Pounds): 107 Weight (Calculated Kilograms): 48.591 BMI Calculated: 22.67 Antony Nutrition Score: Adequate Antony Nutrition Risk Score: 18 Dietary Referral Nutrition Risk Factors: Nutrition Risk Comment: Physical Findings Physical Appearance: Underweight BMI<19 Skin Appearance Skin Appearance: Edema Edema Location Modifier: Both Edema Location: Foot Type of Edema: Degree of Edema: 1+ Gastrointestinal Symptoms GI Symtoms: Tube Present: Bowel Sounds: Recent Bowel Pattern: Stool Characteristics: Nutritional Diagnosis Nutritional Risk Acuity 2: CHF w/Complication Past Medical History: dementia, chronic a-fib Nutritional Acuity: 2-Moderate Nutrition Diagnosis: Nutr. Knowledge Deficit Nutrition Etiology: Impaired Cognitive Abilty Nutrition Problem/Etiology/Sym: acute CHF with a history of dementia. Energy Requirement: 1290 (kcal/day (22 kcal/kg)- Bartholomew RMR 979 AF 1.2, IF 1.1 ) Protein Requirement: 58 (g/day (1.0 g/kg)) Fluid Requirement: 1450 (mL/day (25 mL/kg)) Diet Type: CHF Diet Nutrition Intervention: Cont diet as ordered, Encourage intake Drug: Diuretics Nutrition Monitoring & Eval RD Patient Assessment Time: [address] Assessment Type: RD Assessment Patient Nutrition Acuity: 2-Moderate Follow Up Date: Aug 18, 2017 Nutritional Comment: 08/08 pt admitted with CHF. pt on CHF diet and eating 50% of meals. alb 3.2. Will cont to monitor and encourage intake. 08/10 Pt remains on a CHF diet and eating 50 - 100% of meals. alb 3.2 BUN 20. Will continue to monitor pt and encourage adequate intake. 08/13 Pt consuming 50-100% of small meals on CHF diet. Wt is down 9# from admission wt on 08/07, but is likely d/t diuresis. Notable labs include BUN 21, tot pro 6.1 and alb 2.8. Will cont to monitor and encourage intake. ANNABEL CASTRO Aug 13, 2017 12:20
--- NOTE | 2017-08-13 14:42 | RADIOLOGY IMAGING REPORT ---
FACILITY: [facility] PATIENT NAME: Maggie Dennis : 1930 MR: [id number] V: [id number] EXAM DATE: ORDERING PHYSICIAN: TYLOR HUANG TECHNOLOGIST: Location: [facility] Patient: Maggie Dennis : 1930 Visit/Account:[id number] Date of Sevice: 08/13/2017 CHEST SINGLE AP Indication: Pleural effusion.. Comparison: 08/10/2017. Findings: Cardiac silhouette is minimally obscured from the bilateral pleural effusions. Mediastinal silhouette and pulmonary vessels within normal limits. There is reduction of the left pleural effusion which is now at least small. No indication of appreciable left pneumothorax. Small right pleural effusion is again present. Mild bibasilar atelectasis. No right pneumothorax. No discrete nodules. Upper abdomen is unremarkable. No acute bony abnormality. IMPRESSION: 1. Improved left lung showing reduction the pleural effusion which is now at least small with mild as sociated basilar atelectasis. No indication of pneumothorax. 2. Continued small right pleural effusion with right basilar atelectasis. Report Dictated By: David Perez at 08/13/2017 2:35 PM Report E-Signed By: David Perez at 08/13/2017 2:37 PM WSN:[id number]
[2017-08-13 15:18] VITALS: BP 100/52
[2017-08-13 18:40] VITALS: BP 101/59
[2017-08-13 23:22] VITALS: BP 110/69
[2017-08-14] VITALS (9 sets, daily range): BP systolic 82–117; BP diastolic 48–70
[2017-08-14] MEDS: DIGOXIN 0.125 MG TAB PO SCH (09:10)
[2017-08-14] MEDS: FERROUS SULFATE 325 MG TAB PO SCH ×2 (09:10→20:28)
[2017-08-14] MEDS: POTASSIUM CHL 10 MEQ TABCR PO SCH ×2 (09:10→17:11)
[2017-08-14] MEDS: METOPROLOL SUCC XL 50 MG TABCR 50 MG TAB.ER.24H PO SCH (09:10)
--- NOTE | 2017-08-14 10:00 | Hospitalist Progress Note ---
Subjective Progress Notes Subjective The patient is without complaints. No concerns from staff. Physical Exam Vital Signs Date Time Temp Pulse Resp B/P (MAP) Pulse Ox O2 Delivery O2 Flow Rate FiO2 08/14/17 09:10 67 08/14/17 07:53 93 High-Flow Nasal Cannula 6.0 08/14/17 07:50 101/63 (76) 08/14/17 07:28 98.0 18 08/11/17 08:00 75.0 Intake and Output 08/15/17 07:00 # Voids 1 General Appearance: Alert, Awake, No Acute Distress Cardiovascular: Regular Rate and Rhythm Respiratory: Clear to Auscultation Extremities: No Edema Result Diagram: 08/12/17 0542 08/14/17 0909 Assessment and Plan Problems: (1) Acute diastolic (congestive) heart failure Assessment & Plan: She present with increased shortness of breath. Her CT scan did show large bilateral pleural effusions. She was recently admitted to the hospital in [place] for heart failure. Per review of those records, she was felt to have diastolic heart failure with EF of 50-55%, severe LAE, moderate to severe mitral regurgitation, trace to mild aortic regurgitation, moderate to severe tricuspid regurgitation, and pulmonary hypertension with moderate elevation of pulmonary artery pressure at 48mmHg. She has been started on scheduled IV Lasix. Her weights have improved approximately 7kg since admission. Repeat CXR on 08/13 showed improvement in the the pleural effusion. The patient is currently not short of breath. Will not arrange for a thoracentesis. She is hoping she can go back to [facility] with Home Health and private helpers. Will continue diurese but switch to PO Lasix. Her O2 requirement is now down to 6 liters which is more feasible for SW to manage. Hospice referral has been sent (2) Dementia Status: Chronic Assessment & Plan: She does reside at [facility] in the memory care unit. (3) Chronic a-fib Assessment & Plan: She is on chronic treatment with Metoprolol and Eliquis. Eliquis has been discontinued due to falls and nosebleed. (4) Hematuria Status: Acute Assessment & Plan: She likely had some trauma associated with her catheter. Her repeat urinalysis has shown clearing. Exam Sepsis Risk: No Definite Risk Problem Qualifiers (1) Dementia: Dementia type: unspecified type Dementia behavioral disturbance: without behavioral disturbance Qualified Codes: F03.90 - Unspecified dementia without behavioral disturbance SUZI MARINO MD Aug 14, 2017 10:00
[2017-08-14] MEDS: FUROSEMIDE 40 MG TAB PO SCH ×2 (10:12→13:37)
[2017-08-15 08:45] VITALS: BP 115/60
[2017-08-15 08:48] VITALS: BP 109/58
[2017-08-15] MEDS ORDERED: POTA-53 PO (08:51)
[2017-08-15] MEDS ORDERED: FURO-47 PO (08:51)
[2017-08-15] MEDS: DIGOXIN 0.125 MG TAB PO SCH (08:55)
[2017-08-15] MEDS: METOPROLOL SUCC XL 50 MG TABCR 50 MG TAB.ER.24H PO SCH (08:55)
[2017-08-15] MEDS: FERROUS SULFATE 325 MG TAB PO SCH (08:55)
[2017-08-15] MEDS: FUROSEMIDE 40 MG TAB PO SCH (08:55)
[2017-08-15] MEDS: POTASSIUM CHL 10 MEQ TABCR PO SCH (08:55)
--- NOTE | 2017-08-15 08:58 | Hospitalist Depart ---
Discharge Summary Reason for Hosp/Final Diag: (1) Acute diastolic (congestive) heart failure Hospital Course & Plan: She present with increased shortness of breath. Her CT scan did show large bilateral pleural effusions. She was recently admitted to the hospital in [place] for heart failure. Per review of those records, she was felt to have diastolic heart failure with EF of 50-55%, severe LAE, moderate to severe mitral regurgitation, trace to mild aortic regurgitation, moderate to severe tricuspid regurgitation, and pulmonary hypertension with moderate elevation of pulmonary artery pressure at 48mmHg. She was started on scheduled IV Lasix. Her weights have improved approximately 12kg since admission. Repeat CXR on 08/13 showed improvement in the the pleural effusion. The patient is currently not short of breath. Will not arrange for a thoracentesis. She will go back to [facility] with Home Health and private helpers. Will continue diurese with PO Lasix. We will increase her previous admission Lasix dose to 40mg daily and start her on oral Potassium. Her O2 requirement is now down to 5 liters which is more feasible for SW to manage. Hospice referral is still being considered by family. (2) Dementia Status: Chronic Hospital Course & Plan: She does reside at [facility] in the memory care unit. (3) Chronic a-fib Hospital Course & Plan: She is on chronic treatment with Metoprolol and Eliquis. Eliquis has been discontinued due to falls and nosebleed. (4) Hematuria Status: Acute Hospital Course & Plan: She likely had some trauma associated with her catheter. Her repeat urinalysis has shown clearing. Departure Latest Vital Signs Vital Signs 08/14/17 08/14/17 08/15/17 20:28 23:05 08:45 Temp 98.0 Pulse 66 Resp 12 B/P (MAP) 115/60 (78) Pulse Ox 93 O2 Delivery High-Flow Nasal Cannula O2 Flow Rate 5.0 FiO2 75.0 Weight (Pounds): 110 Weight (Ounces): 9.0 Result Diagram: 08/12/17 0542 08/15/17 0530 Condition: Improved Discharge: Assisted Living Discharge Instructions Home Meds Active Scripts Cephalexin 500 Mg Tab (KEFLEX 500 MG TAB) 500 Mg Tablet, 500 MG PO Q6H, #26 TAB Prov:JEY ANGEL BUTCHER ASSISTANT 08/05/17 Reported Medications Metoprolol Succinate (TOPROL XL) 50 Mg Tab.er.24h, 1 TAB PO QDAY, TAB 08/05/17 Mag Hydrox/Aluminum Hyd/Simeth (Maalox Advanced Suspension) 200 Mg-200 Mg-20 Mg/ 5 Ml Oral.susp, 15 ML PO Q4H Y for DISCOMFORT 08/05/17 Magnesium Hydroxide (MILK OF MAGNESIA) 400 Mg/5 Ml Oral.susp, 15-30 ML PO Q12H Y for CONSTIPATION MDD 2 doses, BOTTLE 08/05/17 Furosemide (LASIX) 20 Mg Tablet, 1 TAB PO DAILY, TAB 08/05/17 Loperamide HCl (Imodium A-D) 2 Mg Capsule, 1 TAB PO PRN Y for DIARRHEA MDD 8 doses 08/05/17 Ferrous Sulfate (FERROUS SULFATE) 325 Mg Tablet, 325 MG PO DAILY 08/05/17 Apixaban (ELIQUIS) 2.5 Mg Tablet, 2.5 MG PO BID 08/05/17 Digoxin (DIGOXIN) 125 Mcg Tablet, 125 MCG PO QDAY take at 0800 08/05/17 Ipratropium/Albuterol Sulfate (COMBIVENT RESPIMAT INHAL SPRAY) 4 Gm Aer.w.adap, 1 PUFF IH BID 08/05/17 Famotidine/Ca Carb/Mag Hydrox (TUMS DUAL ACTION TABLET CHEW) 1 Each Tab.chew, 2 TAB PO Q2H Y for HEARTBURN MDD 10 tab, TAB.CHEW 08/05/17 Acetaminophen (TYLENOL) 325 Mg Tablet, 325 MG PO q4h prn, TAB 08/05/17 Diet: Regular Activity: As Tolerated Copies to: MAGGY DIEZ MD Venous Thromboembolism Antithrombotics Is Pt On Any Antithrombotics?: Yes Problem Qualifiers (1) Dementia: Dementia type: unspecified type Dementia behavioral disturbance: without behavioral disturbance Qualified Codes: F03.90 - Unspecified dementia without behavioral disturbance PATRICK GALLEGOS [facility] Aug 15, 2017 08:58
[2017-08-16] MEDS ORDERED: APIX2.5T PO (18:54)
[2017-08-16] MEDS ORDERED: LORA-1455 PO (18:54)
[2017-08-24] MEDS ORDERED: MORP100S32 PO (20:52)
== END 2017-08-15 14:45 | disposition home or self-care (01) | DRG 292 ==
LOC: ER 08:44 → MED 11:21
PROVIDERS: ADMIT Family Medicine; ATTEND Family Medicine
DX: I50.33 Acute on chronic diastolic (congestive) heart failure (principal); N30.01 Acute cystitis with hematuria; J90 Pleural effusion, not elsewhere classified; F03.90 Unspecified dementia, unspecified severity, without behavioral disturbance, psychotic disturbance, mood disturbance, and anxiety; I48.2 Chronic atrial fibrillation; R29.6 Repeated falls; M79.642 Pain in left hand; M25.532 Pain in left wrist; H26.9 Unspecified cataract; S51.012A Laceration without foreign body of left elbow, initial encounter; W19.XXXA Unspecified fall, initial encounter; Z79.01 Long term (current) use of anticoagulants; Z66 Do not resuscitate; Z99.81 Dependence on supplemental oxygen; R04.0 Epistaxis; R60.0 Localized edema; I87.2 Venous insufficiency (chronic) (peripheral); Z78.0 Asymptomatic menopausal state; F17.210 Nicotine dependence, cigarettes, uncomplicated; M06.9 Rheumatoid arthritis, unspecified
CPT/HCPCS: 36415; 70450; 71045; 71250; 72125; 80162; 81001; 82040; 82247; 82310; 82374; 82435; 82565; 82947; 83735; 83880; 84075; 84132; 84155; 84295; 84450; 84460; 84484; 84520; 85025; 85610; 85730; 86850; 86900; 86901; 87077; 87088; 87186; 93005; 94660; 96374; 96375; 97161; 97165; 99284; 99285; A4353; J0696; J1940; J2060; J3010

== ENCOUNTER → 2017-08-07 | Outpatient (CLI) | payer MEDICARE ==
[~2017-08-07] MED LIST changes: +FURO-47 PO; +LORA-1455 PO; +POTA-53 PO
[2017-08-09 17:27] VITALS: BMI 22.7
== END ==
LOC: AMB 08:11
PROVIDERS: ATTEND Nurse Practitioner
DX: S51.812A Laceration without foreign body of left forearm, initial encounter (principal); S51.012A Laceration without foreign body of left elbow, initial encounter; R04.0 Epistaxis; W19.XXXA Unspecified fall, initial encounter; Y92.129 Unspecified place in nursing home as the place of occurrence of the external cause
CPT/HCPCS: A0425; A0427

== ENCOUNTER → 2017-09-13 | Outpatient (CLI) | payer MEDICARE ==
[2017-08-09 17:27] VITALS: BMI 22.7
[~2017-09-13] MED LIST changes: +FURO-47 PO; +LORA-1455 PO; +MORP100S32 PO; +POTA-53 PO; +SPIR25TA78 PO
== END ==
LOC: ZZSPRING 00:58
PROVIDERS: ATTEND Family Medicine
DX: F03.90 Unspecified dementia, unspecified severity, without behavioral disturbance, psychotic disturbance, mood disturbance, and anxiety (principal); I50.9 Heart failure, unspecified; J44.9 Chronic obstructive pulmonary disease, unspecified
CPT/HCPCS: 36415; 82310; 82374; 82435; 82565; 82947; 84132; 84295; 84520

== ENCOUNTER → 2018-02-28 | Outpatient (CLI) | payer MEDICARE ==
[2017-08-09 17:27] VITALS: BMI 22.7
[~2018-02-28] MED LIST changes: +IPRA3AMP10 IH; +OXYGENHOME INH; +POTA20TA94 PO; +SERT-184 PO; +SERT25TA90 PO; -SPIR25TA78 PO; +SPIR25TA80 PO
== END ==
LOC: ZZSPRING 02:42
PROVIDERS: ATTEND Family Medicine
DX: I50.9 Heart failure, unspecified (principal); F03.90 Unspecified dementia, unspecified severity, without behavioral disturbance, psychotic disturbance, mood disturbance, and anxiety
CPT/HCPCS: 36415; 82040; 82247; 82310; 82374; 82435; 82565; 82947; 84075; 84132; 84155; 84295; 84450; 84460; 84520; 85027

== ENCOUNTER 2018-03-11 05:28 | Emergency (ER) | payer MEDICARE ==
[2017-08-09 17:27] VITALS: BMI 22.7
[~2018-03-11 05:28] MED LIST changes: -ASPI-757 PO; -GUAI118L21 PO; -PRED20TA6 PO; -TEARS OU
--- NOTE | 2018-03-11 05:39 | ER Report ---
History and Physical Time Seen By MD: 05:32 HPI/ROS CHIEF COMPLAINT: sob HISTORY OF PRESENT ILLNESS: [facility]. Pt tonight appeared more sob. Pt lives on 6L but had a pulse ox 81% on her normal 6 L. Pt was given a breathing treatment and did not improve so family was called. Son, MARQUEZ, wanted her sent to the emergency room. PT has a living will that states she is comfort measures only however pt is on medications and has had recent blood work. Pt states she is fine and has no cp or abd pain. Pt states her breathing is much better however pts pulse ox is still mid 80s on her 6 L. Call to son to discuss if they wanted pt to have blood work and work up. REVIEW OF SYSTEMS: Constitutional: No fever, no chills. Eyes: No discharge. ENT: No sore throat. Cardiovascular: No chest pain, no palpitations. Respiratory: No cough, + shortness of breath. Gastrointestinal: No abdominal pain, no vomiting. Genitourinary: No hematuria. Musculoskeletal: No back pain. Skin: No rashes. Neurological: No headache. Allergies: Coded Allergies: No Known Drug Allergies (Unverified , 03/11/18) Home Meds Active Scripts Metoprolol Succinate (TOPROL XL) 50 Mg Tab.er.24h, 1 TAB PO QDAY for 30 Days, #30 TAB 11 Refills Prov:LIAM RODRIGUEZ MD 02/13/18 Potassium Chloride (POTASSIUM CHLORIDE) 20 Meq Tab.er.prt, 0.5 TAB PO QDAY for 30 Days, #15 TAB 11 Refills Prov:LIAM RODRIGUEZ MD 02/13/18 Furosemide (FUROSEMIDE) 40 Mg Tablet, 0.5 TAB PO DAILY for 30 Days, #15 TAB 11 Refills Prov:LIAM RODRIGUEZ MD 02/13/18 Sertraline Hcl (SERTRALINE HCL) 50 Mg Tablet, 1 TAB PO QHS for 30 Days, #30 TAB 11 Refills Prov:LIAM RODRIGUEZ MD 02/13/18 Ipratropium/Albuterol Sulfate (IPRAT-ALBUT 0.5-3(2.5) MG/3 ML) 3 Ml Ampul.neb, 1 VIAL IH BID for 30 Days, #60 VIAL 11 Refills Prov:LIAM RODRIGUEZ MD 02/13/18 Apixaban (ELIQUIS) 2.5 Mg Tablet, 1 TAB PO BID for 30 Days, #60 TAB 11 Refills Prov:LIAM RODRIGUEZ MD 02/13/18 Reported Medications Guaifenesin/Dextromethorphan (ROBAFEN DM COUGH LIQUID) 118 Ml Liquid, 5 ML PO Q4-6H PRN for COUGH 03/11/18 [liquid tears] No Conflict Check, 1 GTT OU 03/11/18 Aspirin (ASPIRIN) 325 Mg Tablet, 325 MG PO ONCE PRN for CHEST PAIN, TAB 03/11/18 Oxygen (OXYGEN) Inha, 6 L INH, L 11/01/17 Mag Hydrox/Aluminum Hyd/Simeth (Maalox Advanced Suspension) 200 Mg-200 Mg-20 Mg/5 Ml Oral.susp, 15 ML PO Q4H PRN for DISCOMFORT 08/05/17 Magnesium Hydroxide (MILK OF MAGNESIA) 400 Mg/5 Ml Oral.susp, 15-30 ML PO Q12H PRN for CONSTIPATION MDD 2 doses, BOTTLE 08/05/17 Loperamide HCl (Imodium A-D) 2 Mg Capsule, 1 TAB PO PRN PRN for DIARRHEA MDD 8 doses 08/05/17 Famotidine/Ca Carb/Mag Hydrox (TUMS DUAL ACTION TABLET CHEW) 1 Each Tab.chew, 2 TAB PO Q2H PRN for HEARTBURN MDD 10 tab, TAB.CHEW 08/05/17 Acetaminophen (TYLENOL) 325 Mg Tablet, 325 MG PO q4h prn, TAB 08/05/17 Past Medical/Surgical History Pmhx: copd 6 L oxygen, afib, dementia, chf, pulm htn, pneumonia Pshx: non contrib Reviewed Nurses Notes: Yes Old Medical Records Reviewed: Yes Hx Smoking: Yes Smoking Status: Former Smoker Hx Substance Use Disorder: No Hx Alcohol Use: No Constitutional Vital Sign - Last 24 Hours 03/11/18 03/11/18 03/11/18 03/11/18 05:30 05:33 05:58 06:03 Temp 98.0 Pulse 91 91 93 Resp 17 26 28 B/P (MAP) 134/92 134/92 (106) Pulse Ox 92 86 86 O2 Delivery Non-Rebreather 03/11/18 03/11/18 03/11/18 03/11/18 06:25 06:30 06:33 06:34 Pulse 93 104 Resp 48 38 B/P (MAP) 110/75 (87) 82/67 (72) Pulse Ox 93 90 03/11/18 06:36 B/P (MAP) 134/92 (106) Physical Exam General Appearance: The patient is alert, has no immediate need for airway protection and no signs of toxicity. Eyes: Pupils equal and round no pallor or injection, EOMI ENT: no pharyngeal erythema or exudates, Mucous membranes are moist Respiratory: There are no retractions, lungs have crackles at bases Cardiovascular: Regular rate and rhythm. pulses are equal and symmetrical Gastrointestinal: Abdomen is soft and non tender, no masses, bowel sounds normal, no guarding, no rigidity or rebound Neurological: Cranial nerves II-XII grossly intact, no sensory or motor loss Skin: Warm and dry, no rashes. Musculoskeletal: Neck is supple non tender, no vertebral tenderness Extremities are nontender, non swollen and have full range of motion. DIFFERENTIAL DIAGNOSIS: After history and physical exam differential diagnosis was considered for CHF, Pulmonary htn, copd exacerbation Medical Decision Making Data Points Result Diagram: 03/11/18 0558 03/11/18 0558 Laboratory Hematology Test 03/11/18 05:58 Red Blood Count 3.29 M/uL (4.17-5.56) Mean Corpuscular Volume 105.2 fL (80.0-96.0) Mean Corpuscular Hemoglobin 35.8 pg (26.0-33.0) Mean Corpuscular Hemoglobin Concent 34.0 g/dL (32.0-36.0) Red Cell Distribution Width 15.2 % (11.5-14.5) Mean Platelet Volume 7.1 fL (7.2-11.1) Neutrophils (%) (Auto) 83.2 % (39.4-72.5) Lymphocytes (%) (Auto) 7.8 % (17.6-49.6) Monocytes (%) (Auto) 8.0 % (4.1-12.4) Eosinophils (%) (Auto) 0.6 % (0.4-6.7) Basophils (%) (Auto) 0.4 % (0.3-1.4) Nucleated RBC Relative Count (auto) 0.2 /100WBC Neutrophils # (Auto) 6.3 K/uL (2.0-7.4) Lymphocytes # (Auto) 0.6 K/uL (1.3-3.6) Monocytes # (Auto) 0.6 K/uL (0.3-1.0) Eosinophils # (Auto) 0.0 K/uL (0.0-0.5) Basophils # (Auto) 0.0 K/uL (0.0-0.1) Nucleated RBC Absolute Count (auto) 0.02 K/uL Sodium Level 141 mmol/L (137-145) Potassium Level 3.9 mmol/L (3.5-5.0) Chloride Level 104 mmol/L (98-107) Carbon Dioxide Level 31 mmol/L (22-31) Blood Urea Nitrogen 16 mg/dl (7-18) Creatinine 0.70 mg/dl (0.52-1.04) Glomerular Filtration Rate Calc > 60.0 Random Glucose 112 mg/dl (75-110) Calcium Level 9.0 mg/dl (8.4-10.2) B-Type Natriuretic Peptide 271 pg/ml (0-100) Chemistry Test 03/11/18 05:58 White Blood Count 7.6 k/uL (4.5-11.0) Red Blood Count 3.29 M/uL (4.17-5.56) Hemoglobin 11.8 g/dL (12.0-16.0) Hematocrit 34.6 % (34.0-47.0) Mean Corpuscular Volume 105.2 fL (80.0-96.0) Mean Corpuscular Hemoglobin 35.8 pg (26.0-33.0) Mean Corpuscular Hemoglobin Concent 34.0 g/dL (32.0-36.0) Red Cell Distribution Width 15.2 % (11.5-14.5) Platelet Count 148 K/uL (150-450) Mean Platelet Volume 7.1 fL (7.2-11.1) Neutrophils (%) (Auto) 83.2 % (39.4-72.5) Lymphocytes (%) (Auto) 7.8 % (17.6-49.6) Monocytes (%) (Auto) 8.0 % (4.1-12.4) Eosinophils (%) (Auto) 0.6 % (0.4-6.7) Basophils (%) (Auto) 0.4 % (0.3-1.4) Nucleated RBC Relative Count (auto) 0.2 /100WBC Neutrophils # (Auto) 6.3 K/uL (2.0-7.4) Lymphocytes # (Auto) 0.6 K/uL (1.3-3.6) Monocytes # (Auto) 0.6 K/uL (0.3-1.0) Eosinophils # (Auto) 0.0 K/uL (0.0-0.5) Basophils # (Auto) 0.0 K/uL (0.0-0.1) Nucleated RBC Absolute Count (auto) 0.02 K/uL Glomerular Filtration Rate Calc > 60.0 Calcium Level 9.0 mg/dl (8.4-10.2) B-Type Natriuretic Peptide 271 pg/ml (0-100) ED Course/Re-evaluation ED Course PTs paperwork state comfort measures only. Called MARQUEZ Molina, to determine if he would like us to initiate treatment. States he is on his way. 03/11/2018 5:57:31 am Pts son arrived. Spoke with pt and son. Son states that when he was called for her increase sob he wanted her to get a neb tx and some steriods to help her breath. Pt was given a neb at the facility but not steriods so he asked for her to be sent here. Pt clinical exam currently shows crackles without wheezing. Pt does not have lower ext edema. Unclear if it is her copd or chf causing sob. Pt is afebrile and without cough so pneumonia less likely however wthout cxr can not be sure. Son and pt are okay with blood test to look for chf. They do not want any more chest xrays or ekgs. Pt is afib on monitor which is not new for pt. We will check blood work and compare it to blood work on 02/28. Will give a dose of steroids and lasix while awaiting. Son and pt would like to go back to facility once completed. 03/11/2018 6:45:04 am Pts oxygen remains at 85%. Son is in room and we discussed obtaining cxr to look for pneumonia. Son does not want any further testing and is requesting pt to obtain prednisone and albuterol treatments. BNP is stable with pts priors so will keep on pts current lasix. Pts wbc is stable although there is a bump in neutrophils. Discussed with son that if fevers develop he may want to discuss with pcp starting abx. Will increase her nebs to [id number] instead of bid and give short course of prednisone. Decision to Disposition Date: Mar 11, 2018 Decision to Disposition Time: 06:48 Depart Departure Latest Vital Signs Vital Signs Date Time Temp Pulse Resp B/P (MAP) Pulse Ox O2 Delivery O2 Flow Rate FiO2 03/11/18 06:36 134/92 (106) 03/11/18 06:34 104 38 90 03/11/18 05:30 98.0 Non-Rebreather Impression: Primary Impression: Oxygen dependent Additional Impression: COPD with exacerbation Condition: Condition Unchanged Disposition: HOME OR SELF-CARE Referrals: MAGGY DIEZ MD (PCP) LIAM RODRIGUEZ MD 5 Days New Scripts Prednisone (PREDNISONE) 20 Mg Tablet 20 MG PO BID, #10 TAB Prov: BRANDON WOLFF DO 03/11/18 Ipratropium/Albuterol Sulfate (IPRAT-ALBUT 0.5-3(2.5) MG/3 ML) 3 Ml Ampul.neb 3 ML IH q6 PRN for SHORTNESS OF BREATH, #25 PACK 1 Refill Prov: BRANDON WOLFF DO 03/11/18 Patient Instructions: COPD (Chronic Obstructive Pulmonary Disease) (ED) Additional Instructions: Keep pt on her oxygen May increase her nebulizer treatments. Duoneb every 6 hours as needed for shortness of breath. Prednisone 20mg twice a day for 5 days. Follow up with family doctor. Problem Qualifiers BRANDON WOLFF DO Mar 11, 2018 05:39
[2018-03-11] MEDS ORDERED: GUAI118L21 PO (05:54)
[2018-03-11] MEDS ORDERED: TEARS OU (05:54)
[2018-03-11] MEDS ORDERED: ASPI-757 PO (05:54)
[2018-03-11] MEDS ORDERED: FUROSEMIDE 20 MG/2 ML VIAL IVP ONE (05:55)
[2018-03-11] MEDS ORDERED: methylPREDNIS SUCC 125 MG/2ML IVP ONE (05:55)
[2018-03-11 06:27] LABS: PLATELET COUNT, AUTOMATED 148 K/uL (150-450)
[2018-03-11 06:36] VITALS: BP 134/92
[2018-03-11] MEDS ORDERED: PRED20TA6 PO (06:53)
[2018-03-11] MEDS ORDERED: IPRA3AMP10 IH (06:53)
[2018-03-11] MEDS ORDERED: MORP100S32 PO (10:52)
[2018-03-11] MEDS ORDERED: LORA-1455 PO (10:52)
== END 2018-03-11 07:05 | disposition home or self-care (01) ==
LOC: ER 06:30
DX: J44.1 Chronic obstructive pulmonary disease with (acute) exacerbation (principal); Z99.81 Dependence on supplemental oxygen
CPT/HCPCS: 83880; 85025; 96374; 96375; 99284; J1940; J2930; 82310; 82374; 82435; 82565; 82947; 84132; 84295; 84520

== ENCOUNTER → 2018-03-11 | Outpatient (CLI) | payer MEDICARE ==
[2017-08-09 17:27] VITALS: BMI 22.7
[~2018-03-11] MED LIST changes: +ASPI-757 PO; +GUAI118L21 PO; +PRED20TA6 PO; +TEARS OU
== END ==
LOC: AMB 06:55
PROVIDERS: ATTEND Nurse Practitioner
DX: J44.1 Chronic obstructive pulmonary disease with (acute) exacerbation (principal); R09.02 Hypoxemia
CPT/HCPCS: A0425; A0428

== ENCOUNTER → 2018-03-11 | Outpatient (CLI) | payer MEDICARE ==
[2017-08-09 17:27] VITALS: BMI 22.7
== END ==
LOC: AMB 05:07
PROVIDERS: ATTEND Nurse Practitioner
DX: R06.00 Dyspnea, unspecified (principal); R09.02 Hypoxemia; R11.10 Vomiting, unspecified; J44.9 Chronic obstructive pulmonary disease, unspecified
CPT/HCPCS: A0425; A0429

== ENCOUNTER → 2018-03-13 | Outpatient (CLI) | payer MEDICARE ==
[2017-08-09 17:27] VITALS: BMI 22.7
[~2018-03-13] MED LIST changes: +ASPI-757 PO; +GUAI118L21 PO; +PRED20TA6 PO; +TEARS OU
== END ==
LOC: AMB 11:26
PROVIDERS: ATTEND Nurse Practitioner
DX: Z51.5 Encounter for palliative care (principal); F03.90 Unspecified dementia, unspecified severity, without behavioral disturbance, psychotic disturbance, mood disturbance, and anxiety; F05 Delirium due to known physiological condition; I48.91 Unspecified atrial fibrillation; J90 Pleural effusion, not elsewhere classified
CPT/HCPCS: A0425; A0428